=== PATIENT | male | born 1965 | race Caucasian/White ===

== ENCOUNTER 2016-04-28 08:29 | Inpatient (IN) | payer MEDICAID ==
--- NOTE | 2016-04-28 09:03 | CPEKG ---
Heart Rate: 164 RR Interval: 366 QRSD Interval: 98 QT Interval: 284 QTC Interval: 469 QRS Corral: 117 T Wave Corral: 8 EKG Severity - ABNORMAL ECG - EKG Impression: ATRIAL FIBRILLATION, V-RATE 114-197 EKG Impression: ANTERIOR INFARCT, AGE INDETERMINATE Electronically Signed By: Tristan Negron 28-Apr-2016 09:25:10
--- NOTE | 2016-04-28 09:11 | EDPHY ---
H & P Time Seen by Provider: 04/28/16 09:11 HPI/ROS: CHIEF COMPLAINT: Bilateral leg swelling HISTORY OF PRESENT ILLNESS: Patient was last admitted to the hospital in January 2012 with nonischemic cardiomyopathy and atrial fibrillation. He has been out of medications for about 8 months and was being seen by [facility] and was on carvedilol and amiodarone and Lasix. Over the last 2 weeks he describes bilateral leg swelling which is moderate to severe and not associated with shortness of breath or chest pain. Not better worse with anything. Associated with some skin discoloration but no pain and no trauma. REVIEW OF SYSTEMS: Eye: no change in vision ENT: no sore throat Cardiac: no chest pain or syncope Pulmonary: no cough or SOB Abdomen: no vomiting, diarrhea, abdominal pain Musculoskeletal: HPI Skin: no rash Neuro: no headache, no seizure, not tremulous or confused Constitutional: no fever : no urinary symptoms A comprehensive 10 point review of systems is otherwise negative aside from elements mentioned in the history of present illness. PAST MEDICAL HISTORY: Reviewed discharge summary dated 03/05/2012 includes nonischemic cardiomyopathy with ejection fraction of 30% at that time, sleep apnea, atrial fibrillation and flutter, type 2 diabetes, polysubstance abuse. Social history: Patient denies any cocaine or other substance abuse for the last 5 years. He does drink alcohol and his last drink was April 26 of this year. General Appearance: Alert and conversant, cooperative. Eyes: No scleral icterus. ENT, Mouth: Normal mucous membranes. Respiratory: Basilar rales, speaks full sentences, no focal lung sounds. Cardiovascular: Irregularly irregular and tachycardic. Gastrointestinal: Abdomen is soft and non tender. Obese. Neurological: Alert and oriented x3. Normally conversant. Face symmetric, normal movement and sensation in all extremities. Skin: Bilateral venous stasis changes both lower extremities but no redness warmth or lymphangitis. Musculoskeletal: 3+ bilateral pedal edema but no calf tenderness. Psychiatric: Not agitated. Emergency Department course/MDM: EKG, treatment for atrial fibrillation with rapid ventricular response with diltiazem 20 mg IV bolus followed by drip. He will be restarted on Eliquis, 5 mg given in the emergency department. Laboratory to include CBC chemistry liver function tests and ethanol level. 1011: Troponin 0.072, BNP greater than 2500, admission for atrial fibrillation with rapid ventricular response and congestive heart failure, and he has limited resources for outpatient follow-up. Heart rate 140 on diltiazem, blood pressure 128 systolic. Smoking Status: Current every day smoker Constitutional: Initial Vital Signs Temperature (C) 36.4 C 04/28/16 08:34 Heart Rate 144 H 04/28/16 08:34 Respiratory Rate 16 04/28/16 08:34 Blood Pressure 144/117 H 04/28/16 08:34 O2 Sat (%) 94 04/28/16 08:34 O2 Delivery Mode Nasal Cannula O2 (L/minute) 2 Allergies/Adverse Reactions: No Known Allergies Allergy (Verified 03/09/12 12:40) Home Medications: Medication Instructions Recorded NK [No Known Home Meds] 04/28/16 Medical Decision Making - Diagnostics EKG Interpretation: 12-lead EKG interpreted by me; official reading is in trace master. My interpretation is atrial fibrillation rate 164, late anterior RS transition probable old myocardial infarction Imaging: Chest x-ray personally interpreted shows cardiomegaly and congestive heart failure. Differential Diagnosis: Differential for leg swelling considered including but not limited to congestive heart failure, DVT, cellulitis, compartment syndrome. Consult/Admit Bed Type: [facility] for [facility] 1045, [facility] 1108 Critical Care Time: Critical care time spent by me, Dr. Negron, exclusively with the care of this patient was 35 minutes, exclusive of PA or HEALTH SUPPORT SPECIALIST time and exclusive of separate procedures. The organ system at risk was cardiovascular and I ordered oral anticoagulation, intravenous diltiazem bolus and drip, consultation with hospitalist and sample grinder, review of multiple diagnostic studies; to stabilize the patient and prevent worsening of the patient's condition. - Data Points Laboratory Results: Laboratory Results 04/28/16 09:02 04/28/16 09:02 04/28/16 04/28/16 04/28/16 09:02 09:02 09:02 WBC RBC Hgb Hct MCV MCH MCHC RDW Plt Count MPV Neut % (Auto) Lymph % (Auto) [place] % (Auto) Eos % (Auto) Baso % (Auto) Nucleat RBC Rel Count Absolute Neuts (auto) Absolute Lymphs (auto) Absolute Monos (auto) Absolute Eos (auto) Absolute Basos (auto) Absolute Nucleated RBC Immature Gran % Immature Gran # PT 16.0 SEC H SEC (12.0-15.0) INR 1.28 H (0.83-1.16) Sodium 141 mEq/L mEq/L (134-144) Potassium 4.4 mEq/L mEq/L (3.5-5.2) Chloride 101 mEq/L mEq/L (97-110) Carbon Dioxide 26 mEq/l mEq/l (22-31) Anion Gap 14 mEq/L mEq/L (8-16) BUN 14 mg/dL mg/dL (7-23) Creatinine 0.7 mg/dL mg/dL (0.7-1.3) Estimated GFR > 60 Glucose 165 mg/dL H mg/dL (70-100) Calcium 9.4 mg/dL mg/dL (8.5-10.4) Total Bilirubin 1.4 mg/dL mg/dL (0.1-1.4) Conjugated Bilirubin 0.6 mg/dL H mg/dL (0.0-0.5) Unconjugated Bilirubin 0.8 mg/dL mg/dL (0.0-1.1) AST 49 IU/L IU/L (17-59) ALT 47 IU/L IU/L (21-72) Alkaline Phosphatase 89 IU/L IU/L (38-126) Troponin I 0.072 ng/mL H ng/mL (0-0.034) NT-Pro-B Natriuret Pep 2510 pg/mL H pg/mL (0-125) Total Protein 7.5 g/dL g/dL (6.3-8.2) Albumin 4.2 g/dL g/dL (3.5-5.0) Ethyl Alcohol < 10 mg/dL mg/dL (0-10) 04/28/16 09:02 WBC 8.97 10^3/uL 10^3/uL (3.80-9.50) RBC 5.46 10^6/uL 10^6/uL (4.40-6.38) Hgb 18.0 g/dL H g/dL (13.7-17.5) Hct 55.1 % H % (40.0-51.0) MCV 100.9 fL H fL (81.5-99.8) MCH 33.0 pg pg (27.9-34.1) MCHC 32.7 g/dL g/dL (32.4-36.7) RDW 13.2 % % (11.5-15.2) Plt Count 210 10^3/uL 10^3/uL (150-400) MPV 11.6 fL fL (8.7-11.7) Neut % (Auto) 70.4 % % (39.3-74.2) Lymph % (Auto) 19.3 % % (15.0-45.0) [place] % (Auto) 7.9 % % (4.5-13.0) Eos % (Auto) 0.7 % % (0.6-7.6) Baso % (Auto) 0.6 % % (0.3-1.7) Nucleat RBC Rel Count 0.0 % % (0.0-0.2) Absolute Neuts (auto) 6.32 10^3/uL 10^3/uL (1.70-6.50) Absolute Lymphs (auto) 1.73 10^3/uL 10^3/uL (1.00-3.00) Absolute Monos (auto) 0.71 10^3/uL 10^3/uL (0.30-0.80) Absolute Eos (auto) 0.06 10^3/uL 10^3/uL (0.03-0.40) Absolute Basos (auto) 0.05 10^3/uL 10^3/uL (0.02-0.10) Absolute Nucleated RBC 0.00 10^3/uL 10^3/uL (0-0.01) Immature Gran % 1.1 % % (0.0-1.1) Immature Gran # 0.10 10^3/uL 10^3/uL (0.00-0.10) PT INR Sodium Potassium Chloride Carbon Dioxide Anion Gap BUN Creatinine Estimated GFR Glucose Calcium Total Bilirubin Conjugated Bilirubin Unconjugated Bilirubin AST ALT Alkaline Phosphatase Troponin I NT-Pro-B Natriuret Pep Total Protein Albumin Ethyl Alcohol Medications Given: Discontinued Medications Apixaban (Eliquis) 5 mg PO EDNOW ONE Stop: 04/28/16 09:45 Last Admin: 04/28/16 10:37 Dose: 5 mg Diltiazem HCl (Cardizem 25 Mg/5 Ml Vial) 20 mg IVP EDNOW ONE Stop: 04/28/16 09:21 Last Admin: 04/28/16 09:32 Dose: 20 mg Diltiazem HCl 125 mg/ Dextrose 125 mls @ 0 mls/hr IV EDNOW ONE; As Directed PRN Reason: Protocol Stop: 04/28/16 09:21 Last Admin: 04/28/16 09:49 Dose: 125 mls Departure - Departure Disposition: [facility] Clinical Impression: Atrial fibrillation Qualifiers: Atrial fibrillation type: unspecified Qualified Code(s): I48.91 - Unspecified atrial fibrillation Congestive heart failure Qualifiers: Congestive heart failure type: unspecified congestive heart failure type Congestive heart failure chronicity: acute on chronic Qualified Code(s): I50.9 - Heart failure, unspecified Condition: Good
[2016-04-28] MEDS ORDERED: DILTIAZEM 125 MG in D5W 125 ML IV ONE (09:20)
[2016-04-28] MEDS ORDERED: DILTIAZEM 25 MG/5 ML VIAL IVP ONE (09:20)
[2016-04-28 09:31] LABS: % IMMATURE GRANULYOCYTES 1.1 % (0.0-1.1); ADD DIFF? NO; ADD MORPH? NO; ADD SCAN? NO; ATYPICAL LYMPHOCYTE FLAG 30 (0-99); FRAGMENT RBC FLAG 0 (0-99); HEMATOCRIT 55.1 % (40.0-51.0); LEFT SHIFT FLG 10 (0-99); LIPEMIA HEMOLYSIS FLAG 80 (0-99); MEAN CELL HEMOGLOBIN CONCENTR. 32.7 g/dL (32.4-36.7); MEAN CELL VOLUME 100.9 fL (81.5-99.8); MEAN PLATELET VOLUME 11.6 fL (8.7-11.7); PLATELET CLUMPS FLAG 20 (0-99); PLATELET COUNT 210 10^3/uL (150-400); RED BLOOD CELL COUNT 5.46 10^6/uL (4.40-6.38); RED CELL DISTRIBUTION WIDTH 13.2 % (11.5-15.2)
[2016-04-28 09:32] LABS: INR 1.28 (0.83-1.16)
[2016-04-28 09:35] LABS: ALANINE AMINOTRANSFERASE 47 IU/L (21-72); ALBUMIN 4.2 g/dL (3.5-5.0); ALKALINE PHOSPHATASE 89 IU/L (38-126); ANION GAP 14 mEq/L (8-16); ASPARTATE AMINOTRANSFERASE 49 IU/L (17-59); BILIRUBIN,TOTAL 1.4 mg/dL (0.1-1.4); BILIRUBIN-CONJUGATED 0.6 mg/dL (0.0-0.5); BILIRUBIN-UNCONJUGATED 0.8 mg/dL (0.0-1.1); CALCIUM 9.4 mg/dL (8.5-10.4); CARBON DIOXIDE 26 mEq/l (22-31); CHLORIDE 101 mEq/L (97-110); CREATININE 0.7 mg/dL (0.7-1.3); GLOMERULAR FILTRATION RATE > 60; GLUCOSE 165 mg/dL (70-100); POTASSIUM 4.4 mEq/L (3.5-5.2); SODIUM 141 mEq/L (134-144); TOTAL PROTEIN 7.5 g/dL (6.3-8.2)
[2016-04-28] MEDS ORDERED: APIXABAN 5 MG TAB PO ONE (09:44)
[2016-04-28 10:07] LABS: TROPONIN I 0.072 ng/mL (0-0.034)
[2016-04-28 10:20] LABS: ETHANOL SERUM < 10 mg/dL (0-10)
[2016-04-28] MEDS ORDERED: ALBUTEROL 3 ML DEYVIAL IH PRN (13:35)
[2016-04-28] MEDS ORDERED: ACETAMINOPHEN 325 MG TAB PO PRN (13:35)
[2016-04-28] MEDS ORDERED: ONDANSETRON 4 MG/2 ML VIAL IVP PRN (13:35)
[2016-04-28] MEDS ORDERED: ONDANSETRON DISINTEGRATING 4 MG TAB PO PRN (13:35)
--- NOTE | 2016-04-28 13:55 | ECHO ---
[id number] + + [address] : : [place] [address] : : [phone] + + Adult Echocardiographic Report + + :Name: ERMELINDA MO Nichojoel Date: 04/28/2016 12:36 PM : : Hospital Admission Number: [id number] : :: 1965 Gender: Male Height: 74 in : :Age: 51 yrs Race: WH,White Weight: 377 lb : :Reason For Study: Eval LV Fx : : BSA: 2.8 meters2: :History: New onset of Atrial Fibrillation : + + MMode/2D Measurements \T\ Calculations IVSd: 1.2 cm LVIDd: 6.5 cm FS: 8.6 % Ao root diam: 3.5 cm LVPWd: 1.2 cm LVIDs: 5.9 cm EDV(Teich): 214.1 ml ACS: 2.0 cm ESV(Teich): 174.6 ml EF(Teich): 18.5 % Normal Measurement Values: + + :LVIDd (3.5-5.7cm) IVSd (0.6-1.1cm) LVPWd (0.6-1.1cm) Aortic Root (2.0-3.7cm)Left Atrium (1.5-4.0cm): :LV Vol(d) (76-115ml) LV Vol(s) (29-48ml) Ejec Fraction (50-65%)PV Maxi (0.6- 1.2m/s) TV Maxi (0.4-1.0m/s) : :MV E Maxi (0.8-1.0m/s)MV A Maxi (0.3-1.0m/s)LVOT Maxi (0.7-1.2m/s) Asc Ao Maxi ( 0.9-1.8m/s) : + + Doppler Measurements \T\ Calculations MV E max maxi: Ao V2 max: LV V1 max: TR max maxi: 104.0 cm/sec 118.0 cm/sec 58.7 cm/sec 273.0 cm/sec Ao max PG: LV V1 max PG: TR max P.6 mmHg 1.4 mmHg 29.8 mmHg RAP systole: 5.0 mmHg RVSP(TR): 34.8 mmHg Left Ventricle The left ventricle is mildly dilated. There is normal left ventricular wall thickness. Left ventricular systolic function is severely reduced. Ejection Fraction = 15%. There is severe global hypokinesis of the left ventricle. Right Ventricle The right ventricle is normal in size and function. Atria The Left Atrial Volume is 38 ml/m2. Right atrial size is normal. Mitral Valve The mitral valve is normal in structure and function. There is no mitral valve stenosis. There is no mitral regurgitation noted. Tricuspid Valve There is trace to mild tricuspid regurgitation. Right ventricular systolic pressure is normal. Aortic Valve The aortic valve is normal in structure and function. There is no aortic stenosis. There is no aortic insufficiency. Pulmonic Valve The pulmonic valve is normal in structure and function. There is no pulmonic valvular regurgitation. Great Vessels The aortic root is normal size. Pericardium/Pleural There is no pericardial effusion. Tachycardia. Conclusion A complete two-dimensional transthoracic echocardiogram was performed (2D, M-mode, Doppler and color flow Doppler). The left ventricle is mildly dilated. Left ventricular systolic function is severely reduced. Ejection Fraction = 15%. There is severe global hypokinesis of the left ventricle. The right ventricle is normal in size and function. The Left Atrial Volume is 38 ml/m2. Right atrial size is normal. The mitral valve is normal in structure and function. There is trace to mild tricuspid regurgitation. Right ventricular systolic pressure is normal. The aortic valve is normal in structure and function. There is no pericardial effusion. Tachycardia Final Reading Physician: Charla Lee signed on 04/28/2016 01:55 PM Ordering Physician: Lydia Pastrana Performed By: Ced De Jesus, KALACS
[2016-04-28] MEDS ORDERED: DILTIAZEM 125 MG in D5W 125 ML IV SCH (14:00)
--- NOTE | 2016-04-28 14:11 | GHP ---
DATE OF ADMISSION: 04/28/2016 CHIEF COMPLAINT: Leg swelling. HISTORY OF PRESENT ILLNESS: This is a 51-year-old male with a history of nonischemic cardiomyopathy . This was diagnosed in 2012. It was thought to be due to alcohol and substance abuse. He is lorna franklin followed by Dr. Schultz. He has been out of his medications for the last 8 months. He noticed o jacobo the last couple weeks increasing leg swelling, but denies any shortness of breath. He also cortez es any palpitations. He actually does have a little bit of shortness of breath, he says due to the swelling that is in his abdomen. He does drink alcohol regularly and his last drink was 3 days ago. He is using his CPAP. He denies any heart palpitations. He admits to dyspnea on exertion. REVIEW OF SYSTEMS: A 10-point review of systems was obtained and other than stated above is negativ e. PAST MEDICAL HISTORY: 1. Ischemic cardiomyopathy with EF of 30%. 2. Obstructive sleep apnea. 3. Previous history of type 2 diabetes, but is not on any medications currently. 4. History of atrial fibrillation. MEDICATIONS: None. SOCIAL HISTORY: He does smoke about 5 cigarettes per week. Regular alcohol use which he quit sever al days ago. Some occasional marijuana. FAMILY HISTORY: He is adopted. PHYSICAL EXAM: VITAL SIGNS: Afebrile, blood pressure is 116/87, heart rate initially was 140s, has come down to 117 on diltiazem drip. Oxygen saturation 95% on 2 L. GENERAL: The patient is well d eveloped, in no apparent distress. HEENT: Nonicteric sclerae. Extraocular movements intact. Mois t mucous membranes. NECK: Supple. No thyromegaly. LUNGS: Good effort. Decreased breath sounds with some slight expiratory wheezes. CARDIOVASCULAR: Distant heart sounds. ABDOMEN: Positive bow el sounds. Soft. Some subcutaneous edema, but also a little bit of shifting dullness to percussion . EXTREMITIES: 3+ edema. NEUROLOGIC: Alert and oriented x3. Moving all 4 extremities equally. PSYCH: Normal mood and affect. LABS: White count 8, hemoglobin 18, platelets 210. INR 1.28. Chemistries normal. Troponin slight ly elevated at 0.072. EKG personally reviewed and interpreted shows atrial fibrillation with rapid ventricular response. Anterior Q-waves. ASSESSMENT: This patient is a 51-year-old male with known cardiomyopathy presenting with congestive heart failure exacerbation due to medication noncompliance. PLAN: 1. Acute systolic congestive heart failure. The patient will be diuresed. Echocardiogram has alre kavya been done. Seems like he had been lost to followup with the electronics mechanic apprentice. They will see him in -house. 2. Atrial fibrillation with rapid ventricular response. We will continue diltiazem drip, but yina solorzano will start some type of oral medications. Defer this to Cardiology. Continue Eliquis. 3. Abdominal distention. Could be subcutaneous edema, though we will get an ultrasound to further evaluate ascites. 4. Mild positive troponins. This is probably related to strain. We will cycle these. 5. Obstructive sleep apnea. Continue CPAP. 6. Questionable type 2 diabetes. We will monitor blood sugar. 7. Admission. Patient will be admitted under inpatient status. Case is discussed with SHEYLA Carmichael records reviewed and summarized in the HPI. /[id number]/MODL
--- NOTE | 2016-04-28 14:57 | PDCARCONS ---
Cardiology Consult Reason for Consult: Heart failure Chief Complaint: short of breath and peripheral swelling Requesting Physician: Dr. Pastrana History of Present Illness: 51-year-old well known to me since 2011 with known history of a nonischemic cardiomyopathy. Initial ejection fraction was 20%. With aggressive medical therapy abstinence from alcohol and drugs his left ventricular function recovered. 5 months ago he stopped his medications due to financial distress. He began drinking heavily. He stopped 3 days ago with the onset of peripheral swelling. His abdominal girth increased he became increasingly shortness of breath with PND and orthopnea and came to the emergency department today for further evaluation. Echocardiogram done in the emergency department shows an ejection fraction 5% with severe global hypokinesis and dilatation of the left ventricle. On my arrival he complains of significant swelling to his abdomen. He does not have scrotal edema. He has significant PND and orthopnea as well as dyspnea on exertion. He stopped drinking 3 days ago. He has had no chest pain. He denies syncope near syncope or palpitations. He has been on no outpatient medications. He had extensive workup in 2011 including a normal coronary angiogram. Last echocardiogram done showed normalization of ejection fraction. I have not seen in the office in some time. He denies fever chills. He denies cough. He has no abdominal pain diarrhea or constipation. He denies tremulousness despite not drinking over 3 days. He denies drug use. Inpatient medications Medications Generic Name Dose Route Start Last Admin Trade Name Freq PRN Reason Stop Dose Admin Apixaban 5 mg 04/28/16 21:00 Eliquis PO 10/25/16 20:59 BID MAR Furosemide 40 mg 04/28/16 15:00 Lasix Injection IVP 10/25/16 14:59 BID@0900,1500 MAR Amiodarone HCl 200 mls @ 0 mls/hr 02/20/12 08:00 Nexterone 1.8 Mg/Ml (Premix) IV 08/18/12 07:59 CONT MAR Per Protocol Furosemide 40 mg 02/19/12 12:00 [id number] Lasix Injection IVP 08/17/12 11:59 [id number] Q6 MAR . 02/20/12 06:48 40 MG [id number] Spironolactone 25 mg 02/20/12 10:30 Aldactone PO 08/18/12 10:29 DAILY MAR History Information - Allergies/Home Medication List Allergies/Adverse Reactions: No Known Allergies Allergy (Verified 03/09/12 12:40) Home Medications: NK [No Known Home Meds] 04/28/16 [Last Taken Unknown] I have personally reviewed and updated: family history, medical history, social history, surgical history - Past Medical History atrial fibrillation - Surgical History Reports: no pertinent surgical hx - Family History Positive for: non-pertinent - Social History Smoking Status: Current every day smoker Alcohol Use: Heavy Drug Use: Cocaine Physical Exam Temp Pulse Resp BP Pulse Ox 36.7 C 117 H 20 116/87 H 95 04/28/16 12:13 04/28/16 12:13 04/28/16 12:13 04/28/16 12:13 04/28/16 12:13 O2 (L/minute) 2 Constitutional: obese, uncomfortable, unkempt Eyes: anicteric sclera Ears, Nose, Mouth, Throat: moist mucous membranes Cardiovascular: irregularly irregular, JVD, edema ( bilateral to the mid abdomen ) Peripheral Pulses: 1+: dorsalis-pedis (R), dorsalis-pedis (L), 2+: carotid (R), carotid (L) Respiratory: other ( Bilateral rales) Gastrointestinal: normoactive bowel sounds Skin: erythema, induration Neurologic: AAOx3 Psychiatric: interacting appropriately Lymph, Heme, Immunologic: no cervical LAD, no supraclavicular LAD Lab and Imaging 04/28/16 09:02 04/28/16 09:02 WBC 8.97 10^3/uL (3.80-9.50) 04/28/16 09:02 RBC 5.46 10^6/uL (4.40-6.38) 04/28/16 09:02 Hgb 18.0 g/dL (13.7-17.5) H 04/28/16 09:02 Hct 55.1 % (40.0-51.0) H 04/28/16 09:02 MCV 100.9 fL (81.5-99.8) H 04/28/16 09:02 MCH 33.0 pg (27.9-34.1) 04/28/16 09:02 MCHC 32.7 g/dL (32.4-36.7) 04/28/16 09:02 RDW 13.2 % (11.5-15.2) 04/28/16 09:02 Plt Count 210 10^3/uL (150-400) 04/28/16 09:02 MPV 11.6 fL (8.7-11.7) 04/28/16 09:02 Neut % (Auto) 70.4 % (39.3-74.2) 04/28/16 09:02 Lymph % (Auto) 19.3 % (15.0-45.0) 04/28/16 09:02 [place] % (Auto) 7.9 % (4.5-13.0) 04/28/16 09:02 Eos % (Auto) 0.7 % (0.6-7.6) 04/28/16 09:02 Baso % (Auto) 0.6 % (0.3-1.7) 04/28/16 09:02 Nucleat RBC Rel Count 0.0 % (0.0-0.2) 04/28/16 09:02 Absolute Neuts (auto) 6.32 10^3/uL (1.70-6.50) 04/28/16 09:02 Absolute Lymphs (auto) 1.73 10^3/uL (1.00-3.00) 04/28/16 09:02 Absolute Monos (auto) 0.71 10^3/uL (0.30-0.80) 04/28/16 09:02 Absolute Eos (auto) 0.06 10^3/uL (0.03-0.40) 04/28/16 09:02 Absolute Basos (auto) 0.05 10^3/uL (0.02-0.10) 04/28/16 09:02 Absolute Nucleated RBC 0.00 10^3/uL (0-0.01) 04/28/16 09:02 Immature Gran % 1.1 % (0.0-1.1) 04/28/16 09:02 Immature Gran # 0.10 10^3/uL (0.00-0.10) 04/28/16 09:02 PT 16.0 SEC (12.0-15.0) H 04/28/16 09:02 INR 1.28 (0.83-1.16) H 04/28/16 09:02 Sodium 141 mEq/L (134-144) 04/28/16 09:02 Potassium 4.4 mEq/L (3.5-5.2) 04/28/16 09:02 Chloride 101 mEq/L (97-110) 04/28/16 09:02 Carbon Dioxide 26 mEq/l (22-31) 04/28/16 09:02 Anion Gap 14 mEq/L (8-16) 04/28/16 09:02 BUN 14 mg/dL (7-23) 04/28/16 09:02 Creatinine 0.7 mg/dL (0.7-1.3) 04/28/16 09:02 Estimated GFR > 60 04/28/16 09:02 Glucose 165 mg/dL (70-100) H 04/28/16 09:02 Calcium 9.4 mg/dL (8.5-10.4) 04/28/16 09:02 Total Bilirubin 1.4 mg/dL (0.1-1.4) 04/28/16 09:02 Conjugated Bilirubin 0.6 mg/dL (0.0-0.5) H 04/28/16 09:02 Unconjugated Bilirubin 0.8 mg/dL (0.0-1.1) 04/28/16 09:02 AST 49 IU/L (17-59) 04/28/16 09:02 ALT 47 IU/L (21-72) 04/28/16 09:02 Alkaline Phosphatase 89 IU/L (38-126) 04/28/16 09:02 Troponin I 0.072 ng/mL (0-0.034) H 04/28/16 09:02 NT-Pro-B Natriuret Pep 2510 pg/mL (0-125) H 04/28/16 09:02 Total Protein 7.5 g/dL (6.3-8.2) 04/28/16 09:02 Albumin 4.2 g/dL (3.5-5.0) 04/28/16 09:02 Ethyl Alcohol < 10 mg/dL (0-10) 04/28/16 09:02 Chest X-ray Interpretation: other ( cardiomegaly with bilateral pleural effusions) Visualized and Interpreted EKG results: Yes Echocardiogram: severe LV dysfunction with dilatation of the ventricle. Ejection fraction of 5 -10%. A/P Assessment: Impression: 51 year old male with nonischemic dilated cardiomyopathy recurrent after 5 months off medications and with recent alcohol binge. This is complicated by recurrent atrial fibrillation. Recommendations are for aggressive diuresis. Re-initiation of Coreg, Aldactone , BRADLY-inhibitor. Load with amiodarone and anticoagulation with cardioversion in the near future. Abstinence from alcohol. We will follow along with you. No further testing required. Plan: Initiate aggressive medical therapy for class 3-4 heart failure. Begin anticoagulation with severe LV dysfunction and atrial fibrillation. Begin amiodarone for rate and rhythm control. Abstinence from alcohol with careful attention for withdrawal. Review of Systems - Review of Systems Constitutional: denies: chills, fever EENTM: no symptoms reported Respiratory: shortness of breath. denies: cough, wheezing Cardiac: edema, irregular heart rate. denies: chest pain, lightheadedness, palpitations, syncope Gastrointestinal/Abdominal: no symptoms reported Genitourinary: no symptoms Musculoskelatal: no symptoms Skin: no symptoms Hematologic/Lymphatic: no symptoms reported Past Medical History - Personal History Current Tetanus/Diphtheria Vaccine: Unsure Current Tetanus Diphtheria and Acellular Pertussis (TDAP): Unsure Tetanus Vaccine Date: unsure - Medical/Surgical History Hx Asthma: No Hx Chronic Respiratory Disease: No Hx Cardiac Disease: Yes Hx Diabetes: No Hx Renal Disease: No Hx Alcoholism: Yes Hx Cirrhosis: No Hx HIV/AIDS: No Hx Splenectomy or Spleen Trauma: No Other PMH: CHF, ZHENG, aFIB. htn. etoh abuse--stopped etoh 04/26/16--feels way better - Social History Smoking Status: Current every day smoker
[2016-04-28] MEDS ORDERED: FUROSEMIDE 40 MG/4 ML VIAL IVP SCH (15:00)
[2016-04-28] MEDS: AMIODARONE HCL 200 MG TAB PO SCH ×2 (16:18→21:08)
[2016-04-28] MEDS ORDERED: FUROSEMIDE 40 MG/4 ML VIAL IVP ONE (16:30)
[2016-04-28] MEDS: FUROSEMIDE 40 MG/4 ML VIAL IVP SCH ×2 (18:48→23:35)
[2016-04-28] MEDS: CARVEDILOL 3.125 MG TAB PO SCH (18:48)
[2016-04-28] MEDS: APIXABAN 5 MG TAB PO SCH (21:08)
[2016-04-29 04:35] LABS: % IMMATURE GRANULYOCYTES 0.6 % (0.0-1.1); ABSOLUTE IMMATURE GRANULOCYTES 0.06 10^3/uL (0.00-0.10); ADD DIFF? NO; ADD MORPH? NO; ADD SCAN? NO; ATYPICAL LYMPHOCYTE FLAG 10 (0-99); FRAGMENT RBC FLAG 0 (0-99); HEMATOCRIT 48.8 % (40.0-51.0); LEFT SHIFT FLG 0 (0-99); LIPEMIA HEMOLYSIS FLAG 80 (0-99); MEAN CELL HEMOGLOBIN 32.6 pg (27.9-34.1); MEAN CELL HEMOGLOBIN CONCENTR. 32.8 g/dL (32.4-36.7); MEAN CELL VOLUME 99.4 fL (81.5-99.8); MEAN PLATELET VOLUME 11.7 fL (8.7-11.7); PLATELET CLUMPS FLAG 0 (0-99); PLATELET COUNT 189 10^3/uL (150-400); RED BLOOD CELL COUNT 4.91 10^6/uL (4.40-6.38); RED CELL DISTRIBUTION WIDTH 13.1 % (11.5-15.2)
[2016-04-29 04:59] LABS: ALANINE AMINOTRANSFERASE 42 IU/L (21-72); ALBUMIN 3.7 g/dL (3.5-5.0); ALKALINE PHOSPHATASE 66 IU/L (38-126); ANION GAP 13 mEq/L (8-16); ASPARTATE AMINOTRANSFERASE 36 IU/L (17-59); BILIRUBIN,TOTAL 1.4 mg/dL (0.1-1.4); CALCIUM 8.8 mg/dL (8.5-10.4); CARBON DIOXIDE 27 mEq/l (22-31); CHLORIDE 99 mEq/L (97-110); CREATININE 0.8 mg/dL (0.7-1.3); GLOMERULAR FILTRATION RATE > 60; GLUCOSE 143 mg/dL (70-100); POTASSIUM 3.8 mEq/L (3.5-5.2); SODIUM 139 mEq/L (134-144); TOTAL PROTEIN 6.6 g/dL (6.3-8.2)
[2016-04-29 05:11] LABS: TROPONIN I 0.056 ng/mL (0-0.034)
[2016-04-29] MEDS: FUROSEMIDE 40 MG/4 ML VIAL IVP SCH ×4 (06:16→23:10)
--- NOTE | 2016-04-29 09:37 | SOAPPROG ---
SOAP Progress Note Assessment/Plan: Assessment: 1. Nonischemic dilated cardiomyopathy ejection fraction 5-10%. 2. persistent atrial fibrillation. 3. alcoholism. Impression: Significant improvement overnight with diuresis. Less abdominal fullness and less peripheral edema. Still clearly volume overloaded. He has blood pressure to work with and clearly needs enhanced rate control. Will up titrate beta-sharda. Formal heart failure consultation will be obtained tomorrow from Dr. Jacobs. He will need chronic anticoagulation. Will plan for cardioversion once he is completely loaded with amiodarone probably 2-3 weeks. Discussed importance of alcohol rehabilitation. He is willing to consider a inpatient program at the time of discharge. I am not sure what options are available. Will ask for consultation from social work. Up titrate Coreg. Consultation for inpatient alcohol rehabilitation. Continue amiodarone for rate and rhythm control with three times daily dosing for 1 week then twice daily dosing then daily dosing. Continue IV diuresis. Add Aldactone tomorrow. 04/29/16 09:33 Subjective: Feeling better with less peripheral edema. Slept well with CPAP mask. no chest pain. Continued exertional shortness of breath. No syncope or near syncope. Discussed the importance today of rehabilitation from his alcoholism. Discussed potential inpatient rehabilitation. He is concerned about the cost. Objective: Vital Signs Temp Pulse Resp BP Pulse Ox 36.4 C 113 H 18 138/99 H 98 04/29/16 08:00 04/29/16 08:00 04/29/16 08:00 04/29/16 08:00 04/29/16 08:00 Laboratory Results 04/29/16 03:46 04/29/16 03:46 04/28/16 04/29/16 04/30/16 05:59 05:59 05:59 Intake Total 1300 Output Total 550 Balance 750 PT 16.0 SEC (12.0-15.0) H 04/28/16 09:02 INR 1.28 (0.83-1.16) H 04/28/16 09:02 Physical Exam - Physical Exam General Appearance: mild distress Neck: non-tender Respiratory: chest non-tender, rales Cardiac/Chest: irregularly irregular Abdomen: normal bowel sounds, ascites Back: No CVA tenderness Skin: other ( Anasarca) Extremities: pedal edema, No calf tenderness Neuro/Psych: no motor/sensory deficits, normal mood/affect ICD10 Worksheet Patient Problems: Problems Problem Status Onset Atrial fibrillation Acute Congestive heart failure Acute Review of Systems - Review of Systems Constitutional: malaise. denies: chills, fever Respiratory: shortness of breath Cardiac: edema, irregular heart rate. denies: chest pain, lightheadedness, palpitations, syncope Gastrointestinal/Abdominal: abdominal distention Genitourinary: frequency Musculoskelatal: no symptoms
[2016-04-29] MEDS: LISINOPRIL 2.5 MG TAB PO SCH (10:32)
[2016-04-29] MEDS: AMIODARONE HCL 200 MG TAB PO SCH ×3 (10:32→22:00)
[2016-04-29] MEDS: APIXABAN 5 MG TAB PO SCH ×2 (10:32→22:00)
[2016-04-29] MEDS: DIGOXIN 250 MCG TAB PO SCH (10:32)
[2016-04-29] MEDS: CARVEDILOL 3.125 MG TAB PO SCH (10:32)
--- NOTE | 2016-04-29 17:40 | HOSPPROG ---
Hospitalist Progress Note Assessment/Plan: * Acute systolic CHF exacerbation * cont iv diuresis per cardiology * non-ischemic cardiomyopathy * d/t alcohol * afib * amiodorone * eliquis * cardioversion in few weeks * alcohol abuse * encouraging abstinence *ZHENG Subjective: feels better. less abd swelling, breathing better Objective: Vital Signs Temp Pulse Resp BP Pulse Ox 36.7 C 80 18 127/103 H 92 04/29/16 15:47 04/29/16 15:47 04/29/16 15:47 04/29/16 15:47 04/29/16 15:47 Laboratory Results 04/29/16 03:46 04/29/16 03:46 04/28/16 04/29/16 04/30/16 05:59 05:59 05:59 Intake Total 1300 Output Total 550 Balance 750 PT 16.0 SEC (12.0-15.0) H 04/28/16 09:02 INR 1.28 (0.83-1.16) H 04/28/16 09:02 tele pers rev/int - afib with rvr, discussed with cardiology ICD10 Worksheet Patient Problems: Problems Problem Status Onset Atrial fibrillation Acute Congestive heart failure Acute
[2016-04-29] MEDS: CARVEDILOL 6.25 MG TAB PO SCH (18:03)
[2016-04-30] MEDS: FUROSEMIDE 40 MG/4 ML VIAL IVP SCH ×4 (05:30→23:07)
--- NOTE | 2016-04-30 08:26 | SOAPPROG ---
SOAP Progress Note Assessment/Plan: Assessment: 51 y/o man with chronic morbid obesity with "dry weight" at 330lbs and CHF since 2011 with ETOH use. Had normalized his LVEF off ETOH but then relapse and now admitted two days ago with 45lbs weight gain and decompensated CHF and afib. Echo now LVEF 15% with LVEDD 6.5cm, normal RVEF, and mild TR. He is diuresis and feeling less short of breath. Denies CP, palpitations or angina. Still markedly volume overloaded especially with distended abdomen. PLAN: 1)increase Lasix to 60mg IV q6hrs. 2)increase Aldactone to 25mg PO BID 3)start KCL 20meq PO TID 4)daily CBC, BMP and MG. 5)suspect needs another 4-7 days of IV diuresis 6)will set up f/u in [facility] upon discharge along with TAYA/CV back to [facility] in 2-3 weeks. Thanks. 04/30/16 08:21 Subjective: feels better and less short of breath. Denies CP, palpitations or dizziness. Urinating a lot and abdomen feels less distended. Still > 30lbs above dry weight. Ambulating in his room without problems. Objective: Vital Signs Temp Pulse Resp BP Pulse Ox 36.6 C 104 H 20 91/77 L 94 04/30/16 07:41 04/30/16 07:41 04/30/16 07:41 04/30/16 07:41 04/30/16 07:41 Laboratory Results 04/29/16 03:46 04/29/16 03:46 04/29/16 04/30/16 05/01/16 05:59 05:59 05:59 Intake Total 1300 700 Output Total 550 7513 750 Balance 750 -8514 -750 PT 16.0 SEC (12.0-15.0) H 04/28/16 09:02 INR 1.28 (0.83-1.16) H 04/28/16 09:02 Physical Exam - Physical Exam General Appearance: obese EENT: normal ENT inspection Neck: non-tender Respiratory: lungs clear Cardiac/Chest: systolic murmur (1/6 BRIJESH), irregularly irregular Peripheral Pulses: 1+: femoral (R), femoral (L), dorsalis-pedis (R), dorsalis- pedis (L), 2+: carotid (R), carotid (L) Abdomen: normal bowel sounds, non-tender, organomegaly, distended Skin: warm/dry Extremities: pedal edema Neuro/Psych: alert ICD10 Worksheet Patient Problems: Problems Problem Status Onset Atrial fibrillation Acute Congestive heart failure Acute
[2016-04-30] MEDS ORDERED: SPIRONOLACTONE 25 MG TAB PO SCH (09:00)
[2016-04-30] MEDS: AMIODARONE HCL 200 MG TAB PO SCH ×3 (09:39→20:38)
[2016-04-30] MEDS: APIXABAN 5 MG TAB PO SCH ×2 (09:39→20:37)
[2016-04-30] MEDS: DIGOXIN 250 MCG TAB PO SCH (09:39)
[2016-04-30] MEDS: CARVEDILOL 6.25 MG TAB PO SCH ×2 (09:40→17:57)
[2016-04-30] MEDS: SPIRONOLACTONE 25 MG TAB PO SCH ×2 (09:40→20:38)
[2016-04-30] MEDS: POTASSIUM CL 20 MEQ PKT PO SCH ×3 (09:40→20:37)
[2016-04-30] MEDS: LISINOPRIL 2.5 MG TAB PO SCH (09:40)
[2016-04-30 09:44] LABS: HEMATOCRIT 49.2 % (40.0-51.0); HEMOGLOBIN 16.2 g/dL (13.7-17.5); MEAN CELL HEMOGLOBIN 32.3 pg (27.9-34.1); MEAN CELL HEMOGLOBIN CONCENTR. 32.9 g/dL (32.4-36.7); MEAN CELL VOLUME 98.2 fL (81.5-99.8); RED BLOOD CELL COUNT 5.01 10^6/uL (4.40-6.38)
[2016-04-30 09:59] LABS: ANION GAP 10 mEq/L (8-16); CALCIUM 8.5 mg/dL (8.5-10.4); CARBON DIOXIDE 31 mEq/l (22-31); CHLORIDE 97 mEq/L (97-110); CREATININE 0.7 mg/dL (0.7-1.3); GLOMERULAR FILTRATION RATE > 60; GLUCOSE 135 mg/dL (70-100); MAGNESIUM 1.5 mg/dL (1.6-2.3); POTASSIUM 3.8 mEq/L (3.5-5.2); SODIUM 138 mEq/L (134-144)
[2016-04-30] MEDS ORDERED: MAGNESIUM SULF 2 GM/WATER 50 ML IV ONE (10:39)
--- NOTE | 2016-04-30 12:00 | HOSPPROG ---
Hospitalist Progress Note Assessment/Plan: * Acute systolic CHF exacerbation * cont iv diuresis per cardiology * non-ischemic cardiomyopathy * d/t alcohol * afib * amiodorone * eliquis * cardioversion in few weeks * alcohol abuse * encouraging abstinence *ZHENG Subjective: no new complaints. Continues to diurese Objective: Vital Signs Temp Pulse Resp BP Pulse Ox 36.5 C 102 H 16 98/76 L 89 L 04/30/16 11:15 04/30/16 11:15 04/30/16 11:15 04/30/16 11:15 04/30/16 11:15 Laboratory Results 04/30/16 09:25 04/30/16 09:25 04/29/16 04/30/16 05/01/16 05:59 05:59 05:59 Intake Total 1300 700 Output Total 550 3325 1000 Balance 750 -2625 -1000 PT 16.0 SEC (12.0-15.0) H 04/28/16 09:02 INR 1.28 (0.83-1.16) H 04/28/16 09:02 discussed with Cardiology. Tele personally viewed interpreted atrial fibrillation - Physical Exam Constitutional: no apparent distress, appears nourished, not in pain Eyes: anicteric sclera, EOMI Ears, Nose, Mouth, Throat: moist mucous membranes, hearing normal, ears appear normal Cardiovascular: irregularly irregular, edema ( 2+) Respiratory: no respiratory distress, no rales or rhonchi, clear to auscultation Gastrointestinal: normoactive bowel sounds, soft, non-tender abdomen, no palpable masses, distension Skin: warm Neurologic: AAOx3 Psychiatric: interacting appropriately, not anxious, not encephalopathic, thought process linear ICD10 Worksheet Patient Problems: Problems Problem Status Onset Atrial fibrillation Acute Congestive heart failure Acute
[2016-05-01 05:37] LABS: HEMATOCRIT 48.2 % (40.0-51.0); HEMOGLOBIN 15.5 g/dL (13.7-17.5); MEAN CELL HEMOGLOBIN 32.2 pg (27.9-34.1); MEAN CELL HEMOGLOBIN CONCENTR. 32.2 g/dL (32.4-36.7); RED BLOOD CELL COUNT 4.82 10^6/uL (4.40-6.38); RED CELL DISTRIBUTION WIDTH 12.8 % (11.5-15.2)
[2016-05-01 05:53] LABS: CHLORIDE 95 mEq/L (97-110)
[2016-05-01 05:56] LABS: ANION GAP 10 mEq/L (8-16); CALCIUM 8.7 mg/dL (8.5-10.4); CARBON DIOXIDE 31 mEq/l (22-31); CREATININE 0.8 mg/dL (0.7-1.3); GLOMERULAR FILTRATION RATE > 60; GLUCOSE 116 mg/dL (70-100); MAGNESIUM 1.6 mg/dL (1.6-2.3); POTASSIUM 3.8 mEq/L (3.5-5.2); SODIUM 136 mEq/L (134-144)
[2016-05-01] MEDS: FUROSEMIDE 40 MG/4 ML VIAL IVP SCH (05:59)
[2016-05-01] MEDS ORDERED: MAGNESIUM SULF 2 GM/WATER 50 ML IV ONE ×2 (09:26→15:00)
--- NOTE | 2016-05-01 09:29 | SOAPPROG ---
SOAP Progress Note Assessment/Plan: Assessment: 51 y/o man with chronic morbid obesity with "dry weight" at 330lbs and CHF since 2011 with ETOH use. Had normalized his LVEF off ETOH but then relapse and now admitted two days ago with 45lbs weight gain and decompensated CHF and afib. Echo now LVEF 15% with LVEDD 6.5cm, normal RVEF, and mild TR. He is diuresis and feeling less short of breath. Denies CP, palpitations or angina. Still markedly volume overloaded especially with distended abdomen. He has diuresed only about 8-10lbs in first three days and is up 40lbs by his scales. PLAN: 1)stop IV lasix q6hrs. 2)start Lasix gtt at 30mg/hr. 3)start Slow Mg 64mg PO BID 4)rest of meds without changes. 5)PT consult to ambulate. Really doesn't get out of be. 6)daily AM serum electrolytes. 05/01/16 09:26 Subjective: feels a little less distended. Denies muscle cramping, CP or syncope. Still short of breath at rest. Objective: Vital Signs Temp Pulse Resp BP Pulse Ox 36.8 C 92 20 112/87 H 95 05/01/16 07:57 05/01/16 07:57 05/01/16 07:57 05/01/16 07:57 05/01/16 07:57 Laboratory Results 05/01/16 04:38 05/01/16 04:38 04/30/16 05/01/16 05/02/16 05:59 05:59 05:59 Intake Total 700 1410 Output Total 3325 3180 Balance -2625 -1770 PT 16.0 SEC (12.0-15.0) H 04/28/16 09:02 INR 1.28 (0.83-1.16) H 04/28/16 09:02 Physical Exam - Physical Exam General Appearance: alert, obese EENT: PERRL/EOMI Neck: non-tender Respiratory: rales (bases bilaterally.) Cardiac/Chest: gallop, JVD, systolic murmur, irregularly irregular Peripheral Pulses: 2+: carotid (R), carotid (L), femoral (R), femoral (L), dorsalis-pedis (R), dorsalis-pedis (L) Abdomen: non-tender, distended, No guarding Skin: warm/dry Extremities: pedal edema Neuro/Psych: alert ICD10 Worksheet Patient Problems: Problems Problem Status Onset Atrial fibrillation Acute Congestive heart failure Acute
[2016-05-01] MEDS: CARVEDILOL 6.25 MG TAB PO SCH ×2 (09:39→18:53)
[2016-05-01] MEDS: AMIODARONE HCL 200 MG TAB PO SCH ×3 (09:39→20:24)
[2016-05-01] MEDS: SPIRONOLACTONE 25 MG TAB PO SCH ×2 (09:39→20:24)
[2016-05-01] MEDS: APIXABAN 5 MG TAB PO SCH ×2 (09:39→20:23)
[2016-05-01] MEDS: LISINOPRIL 2.5 MG TAB PO SCH (09:39)
[2016-05-01] MEDS: DIGOXIN 250 MCG TAB PO SCH (09:40)
[2016-05-01] MEDS: POTASSIUM CL 20 MEQ PKT PO SCH ×3 (09:41→20:24)
[2016-05-01] MEDS: MAGNESIUM CHLORIDE 64 MG TAB PO SCH ×2 (11:14→20:23)
[2016-05-01] MEDS: FUROSEMIDE 100 MG in D5W 100 ML IV SCH ×3 (11:16→20:15)
--- NOTE | 2016-05-01 14:57 | HOSPPROG ---
Hospitalist Progress Note Assessment/Plan: * Acute systolic CHF exacerbation * switch to Lasix drip per Cardiology * non-ischemic cardiomyopathy * d/t alcohol * afib * amiodorone * eliquis * cardioversion in few weeks * alcohol abuse * encouraging abstinence *ZHENG Subjective: edema seems to be improving. No new complaints Objective: Vital Signs Temp Pulse Resp BP Pulse Ox 36.4 C 91 20 98/79 L 90 L 05/01/16 11:44 05/01/16 11:44 05/01/16 11:44 05/01/16 11:44 05/01/16 11:44 Laboratory Results 05/01/16 04:38 05/01/16 04:38 04/30/16 05/01/16 05/02/16 05:59 05:59 05:59 Intake Total 700 1410 690 Output Total 3325 3180 1590 Balance -2625 -1770 -900 PT 16.0 SEC (12.0-15.0) H 04/28/16 09:02 INR 1.28 (0.83-1.16) H 04/28/16 09:02 discussed with cardiology tele reviewed interpreted as AFib - Physical Exam Constitutional: no apparent distress, appears nourished, not in pain Eyes: anicteric sclera, EOMI Ears, Nose, Mouth, Throat: moist mucous membranes, hearing normal, ears appear normal Cardiovascular: irregularly irregular, edema ( 2+) Respiratory: no respiratory distress, no rales or rhonchi, clear to auscultation Gastrointestinal: normoactive bowel sounds, soft, non-tender abdomen, no palpable masses Skin: warm Neurologic: AAOx3 Psychiatric: interacting appropriately, not anxious, not encephalopathic, thought process linear ICD10 Worksheet Patient Problems: Problems Problem Status Onset Atrial fibrillation Acute Congestive heart failure Acute
[2016-05-02] MEDS: FUROSEMIDE 100 MG in D5W 100 ML IV SCH ×7 (00:08→19:47)
[2016-05-02 05:20] LABS: HEMATOCRIT 52.2 % (40.0-51.0); HEMOGLOBIN 16.7 g/dL (13.7-17.5); MEAN CELL HEMOGLOBIN 31.5 pg (27.9-34.1); MEAN CELL VOLUME 98.5 fL (81.5-99.8); RED BLOOD CELL COUNT 5.3 10^6/uL (4.40-6.38); RED CELL DISTRIBUTION WIDTH 12.8 % (11.5-15.2)
[2016-05-02 05:40] LABS: ANION GAP 12 mEq/L (8-16); CALCIUM 8.8 mg/dL (8.5-10.4); CARBON DIOXIDE 36 mEq/l (22-31); CHLORIDE 91 mEq/L (97-110); CREATININE 0.8 mg/dL (0.7-1.3); GLOMERULAR FILTRATION RATE > 60; GLUCOSE 124 mg/dL (70-100); MAGNESIUM 1.9 mg/dL (1.6-2.3); POTASSIUM 4.1 mEq/L (3.5-5.2); SODIUM 139 mEq/L (134-144)
[2016-05-02] MEDS: APIXABAN 5 MG TAB PO SCH ×2 (09:13→21:06)
[2016-05-02] MEDS: AMIODARONE HCL 200 MG TAB PO SCH ×3 (09:13→21:02)
[2016-05-02] MEDS: CARVEDILOL 6.25 MG TAB PO SCH ×2 (09:13→18:40)
--- NOTE | 2016-05-02 09:18 | SOAPPROG ---
SOAP Progress Note Assessment/Plan: Assessment: 51 y/o man with chronic morbid obesity with "dry weight" at 330lbs and CHF since 2011 with ETOH use. Had normalized his LVEF off ETOH but then relapse and now admitted two days ago with 45lbs weight gain and decompensated CHF and afib. Echo now LVEF 15% with LVEDD 6.5cm, normal RVEF, and mild TR. He is diuresis and feeling less short of breath. Denies CP, palpitations or angina. Diuresing very well now on Lasix gtt. Still about 20lbs from dry weight. He has a concert in [place] he really needs to go to to stay financially solvent this Monday. He promises to no longer use ETOH or cocaine. PLAN: 1)decrease Lasix gtt to 20mg/hr. 2)Diamox 500mg PO BID 3)probably change to PO Demadex Tommorrow afternoon and home Mon. 4)close f/u CHF clinic with me next week. 05/02/16 09:15 Subjective: up all night urinating. Exhausted. Some muscle cramping. Abdominal swelling and shortness of breath much better. No CP or syncope. Objective: Vital Signs Temp Pulse Resp BP Pulse Ox 36.4 C 96 18 115/95 H 96 05/02/16 08:00 05/02/16 08:00 05/02/16 08:00 05/02/16 08:00 05/02/16 08:00 Laboratory Results 05/02/16 04:57 05/02/16 04:57 05/01/16 05/02/16 05/03/16 05:59 05:59 05:59 Intake Total 1410 1644 320 Output Total 318 801 3100 Balance -6528 -6083 -9750 PT 16.0 SEC (12.0-15.0) H 04/28/16 09:02 INR 1.28 (0.83-1.16) H 04/28/16 09:02 Physical Exam - Physical Exam General Appearance: alert, obese EENT: PERRL/EOMI Neck: full range of motion Respiratory: lungs clear Cardiac/Chest: edema, gallop, JVD, irregularly irregular Peripheral Pulses: 2+: carotid (R), carotid (L), femoral (R), femoral (L), dorsalis-pedis (R), dorsalis-pedis (L) Abdomen: non-tender, organomegaly, distended, No guarding Skin: warm/dry Extremities: pedal edema Neuro/Psych: alert ICD10 Worksheet Patient Problems: Problems Problem Status Onset Atrial fibrillation Acute Congestive heart failure Acute
[2016-05-02] MEDS: POTASSIUM CL 20 MEQ PKT PO SCH ×3 (10:25→21:02)
[2016-05-02] MEDS: MAGNESIUM CHLORIDE 64 MG TAB PO SCH ×2 (10:25→21:02)
[2016-05-02] MEDS: SPIRONOLACTONE 25 MG TAB PO SCH ×2 (10:26→21:02)
[2016-05-02] MEDS: LISINOPRIL 2.5 MG TAB PO SCH (10:26)
[2016-05-02] MEDS: DIGOXIN 250 MCG TAB PO SCH (10:26)
[2016-05-02] MEDS: acetaZOLAMIDE 250 MG TAB PO SCH ×2 (10:37→21:02)
[2016-05-02 16:31] LABS: ANION GAP 14 mEq/L (8-16); CALCIUM 9.3 mg/dL (8.5-10.4); CARBON DIOXIDE 34 mEq/l (22-31); CHLORIDE 89 mEq/L (97-110); CREATININE 0.9 mg/dL (0.7-1.3); GLOMERULAR FILTRATION RATE > 60; GLUCOSE 116 mg/dL (70-100); POTASSIUM 3.5 mEq/L (3.5-5.2); SODIUM 137 mEq/L (134-144)
--- NOTE | 2016-05-02 16:58 | HOSPPROG ---
Hospitalist Progress Note Assessment/Plan: * Acute systolic CHF exacerbation * continue Lasix drip per Cardiology * possible DC on Monday * non-ischemic cardiomyopathy * d/t alcohol * afib * amiodorone * eliquis * cardioversion in few weeks * alcohol abuse * encouraging abstinence *ZHENG Subjective: diuresed pretty well. No complaints Objective: Vital Signs Temp Pulse Resp BP Pulse Ox 36.8 C 98 21 H 117/77 95 05/02/16 12:00 05/02/16 12:00 05/02/16 12:00 05/02/16 12:00 05/02/16 12:00 Laboratory Results 05/02/16 04:57 05/02/16 15:16 05/01/16 05/02/16 05/03/16 05:59 05:59 05:59 Intake Total 1410 1644 820 Output Total 3180 8015 7925 Balance -1770 -6371 -7105 PT 16.0 SEC (12.0-15.0) H 04/28/16 09:02 INR 1.28 (0.83-1.16) H 04/28/16 09:02 tele personally viewed interpreted atrial fibrillation discussed with Cardiology - Physical Exam Constitutional: no apparent distress, appears nourished, not in pain Eyes: anicteric sclera, EOMI Ears, Nose, Mouth, Throat: moist mucous membranes, hearing normal, ears appear normal Cardiovascular: irregularly irregular, edema ( 2+ but improving) Respiratory: no respiratory distress, no rales or rhonchi, clear to auscultation Skin: warm Neurologic: AAOx3 Psychiatric: interacting appropriately, not anxious, not encephalopathic, thought process linear ICD10 Worksheet Patient Problems: Problems Problem Status Onset Atrial fibrillation Acute Congestive heart failure Acute
[2016-05-03 04:35] LABS: HEMATOCRIT 50.1 % (40.0-51.0); MEAN CELL HEMOGLOBIN 32.9 pg (27.9-34.1); MEAN CELL HEMOGLOBIN CONCENTR. 33.9 g/dL (32.4-36.7); MEAN CELL VOLUME 97.1 fL (81.5-99.8); RED BLOOD CELL COUNT 5.16 10^6/uL (4.40-6.38); RED CELL DISTRIBUTION WIDTH 12.5 % (11.5-15.2)
[2016-05-03] MEDS: FUROSEMIDE 100 MG in D5W 100 ML IV SCH (04:39)
[2016-05-03 04:59] LABS: ANION GAP 10 mEq/L (8-16); CALCIUM 9.3 mg/dL (8.5-10.4); CARBON DIOXIDE 32 mEq/l (22-31); CHLORIDE 92 mEq/L (97-110); CREATININE 0.9 mg/dL (0.7-1.3); GLOMERULAR FILTRATION RATE > 60; GLUCOSE 120 mg/dL (70-100); MAGNESIUM 1.7 mg/dL (1.6-2.3); POTASSIUM 3.4 mEq/L (3.5-5.2); SODIUM 134 mEq/L (134-144)
[2016-05-03] MEDS: acetaZOLAMIDE 250 MG TAB PO SCH ×2 (10:12→22:44)
[2016-05-03] MEDS: POTASSIUM CL 20 MEQ PKT PO SCH ×3 (10:13→22:44)
[2016-05-03] MEDS: AMIODARONE HCL 200 MG TAB PO SCH ×3 (10:13→22:43)
[2016-05-03] MEDS: APIXABAN 5 MG TAB PO SCH ×2 (10:13→22:43)
[2016-05-03] MEDS: MAGNESIUM CHLORIDE 64 MG TAB PO SCH ×2 (10:13→22:45)
[2016-05-03] MEDS: CARVEDILOL 6.25 MG TAB PO SCH ×2 (10:13→18:27)
[2016-05-03] MEDS: SPIRONOLACTONE 25 MG TAB PO SCH ×2 (10:13→22:44)
[2016-05-03] MEDS: DIGOXIN 250 MCG TAB PO SCH (10:13)
[2016-05-03] MEDS: LISINOPRIL 2.5 MG TAB PO SCH (11:39)
[2016-05-03] MEDS: FUROSEMIDE 80 MG TAB PO SCH (15:24)
--- NOTE | 2016-05-03 16:38 | SOAPPROG ---
SOAP Progress Note Assessment/Plan: Assessment: 1. Severe, nonischemic dilated cardiomyopathy likely related to alcohol abuse and possibly atrial fibrillation with rapid ventricular response. 2. [employer] heart Association functional class 4 acute systolic congestive heart failure. 3. Paroxysmal atrial fibrillation. 4. Morbid but obesity. 5. Obstructive sleep apnea. 6. Polysubstance abuse. Plan: 1. He has been transitioned over to p.o. diuretics today . His other medications will be continued. 2. Will continue with systemic anticoagulation. 3. I wonder if he might benefit from TAYA/cardioversion prior to discharge from the hospital. 4. We will follow along with you. 05/03/16 16:40 Subjective: He states he feels much better. His breathing has improved dramatically. He notes that he continues to have mild lower extremity edema. He denies orthopnea PND. He is not having any chest discomfort. Objective: Vital Signs Temp Pulse Resp BP Pulse Ox 36.6 C 72 20 96/81 H 93 05/03/16 15:26 05/03/16 15:26 05/03/16 15:26 05/03/16 15:26 05/03/16 15:26 Laboratory Results 05/03/16 04:13 05/03/16 04:13 05/02/16 05/03/16 05/04/16 05:59 05:59 05:59 Intake Total 1644 2161 700 Output Total 8015 03967 5480 [facility] -6371 -05875 -2650 PT 16.0 SEC (12.0-15.0) H 04/28/16 09:02 INR 1.28 (0.83-1.16) H 04/28/16 09:02 Physical Exam - Physical Exam General Appearance: WD/WN, no apparent distress Neck: non-tender, full range of motion Respiratory: chest non-tender, lungs clear Cardiac/Chest: edema (Pitting edema to 2-3 inches above the ankle.), irregularly irregular, No gallop, No JVD Peripheral Pulses: 2+: carotid (R), carotid (L) Neuro/Psych: alert, normal mood/affect, oriented x 3 ICD10 Worksheet Patient Problems: Problems Problem Status Onset Atrial fibrillation Acute Congestive heart failure Acute
--- NOTE | 2016-05-03 18:41 | HOSPPROG ---
Hospitalist Progress Note Assessment/Plan: Assessment: 51-year-old male presents with acute systolic congestive heart failure exacerbation in the setting of atrial fibrillation with rapid ventricular response, nonischemic cardiomyopathy Plan: # Acute systolic CHF exacerbation. Evidenced by CXR w/ pulm edema (personally interpreted) + BNP 2500 + elevated trop 0.07 + clinical hypervolemia, 2/2 med non-adherence and likely uncontrolled Afib - net neg 13L o/n, neg 22kg LOS - patient reports he needs to discharge 3/8 PM - since he is breathing well on room air, will transition off of lasix gtt and onto 80mg PO bid now, gauge response - cont w/ K supplement, Mg supplement, monitor Cr - cont w/ ACEi, aldactone, bblocker - EF 15% on Echo, repeat as outpt after a trial of med adherence # Non-ischemic cardiomyopathy. Chronic, 2/2 EtOH - rec alcohol abstinence # Persistent Atrial Fibrillation. Acute RVR, plan to either DCCV prior to DC or in several weeks - will d/w Dr. Jacobs in AM - cont on amio tid - cont on eliquis # Morbid obesity. BMI 42, increases risk of morbidity # ZHENG. Rec outpt tx Diet. Cardiac Ppx. High risk, on eliquis Code. Full Dispo. ADD 38 PM Subjective: Reports he is still feeling somewhat short of breath with ambulating Objective: Vital Signs Temp Pulse Resp BP Pulse Ox 36.6 C 76 20 103/75 93 05/03/16 15:26 05/03/16 18:27 05/03/16 15:26 05/03/16 18:27 05/03/16 15:26 Laboratory Results 05/03/16 04:13 05/03/16 04:13 05/02/16 05/03/16 05/04/16 05:59 05:59 05:59 Intake Total 1644 2161 950 Output Total 4649 20868 9724 [facility] -0779 -48567 -9652 PT 16.0 SEC (12.0-15.0) H 04/28/16 09:02 INR 1.28 (0.83-1.16) H 04/28/16 09:02 - Pending Discharge Pending Discharge Within 24 Hours: Yes Pending Discharge Date: 05/04/16 Pending Discharge Time: 11:00 - Physical Exam Constitutional: no apparent distress, not in pain, obese, No uncomfortable Cardiovascular: irregularly irregular, edema (+bilateral lower extremity), No systolic murmur, No tachycardia Respiratory: inspiratory crackles (Bilateral bases), No reduced air movement, No expiratory wheeze, No bronchial breath sounds Gastrointestinal: normoactive bowel sounds, soft, non-tender abdomen, no palpable masses Neurologic: AAOx3, sensation intact bilaterally Psychiatric: interacting appropriately, not anxious, not encephalopathic, thought process linear ICD10 Worksheet Patient Problems: Problems Problem Status Onset Atrial fibrillation Acute Congestive heart failure Acute
[2016-05-04 07:15] VITALS: TEMP 97.7
[2016-05-04] MEDS: FUROSEMIDE 80 MG TAB PO SCH ×2 (09:06→15:26)
[2016-05-04] MEDS: CARVEDILOL 6.25 MG TAB PO SCH (09:06)
[2016-05-04] MEDS: DIGOXIN 250 MCG TAB PO SCH (09:07)
[2016-05-04] MEDS: acetaZOLAMIDE 250 MG TAB PO SCH (09:07)
[2016-05-04] MEDS: LISINOPRIL 2.5 MG TAB PO SCH (09:07)
[2016-05-04] MEDS: MAGNESIUM CHLORIDE 64 MG TAB PO SCH (09:07)
[2016-05-04] MEDS: SPIRONOLACTONE 25 MG TAB PO SCH (09:07)
[2016-05-04] MEDS: APIXABAN 5 MG TAB PO SCH (09:07)
[2016-05-04] MEDS: POTASSIUM CL 20 MEQ PKT PO SCH (09:07)
[2016-05-04] MEDS: AMIODARONE HCL 200 MG TAB PO SCH (09:07)
--- NOTE | 2016-05-04 09:56 | SOAPPROG ---
SOAP Progress Note Assessment/Plan: Assessment: 51 y/o man with chronic morbid obesity with "dry weight" at 330lbs and CHF since 2011 with ETOH use. Had normalized his LVEF off ETOH but then relapse and now admitted two days ago with 45lbs weight gain and decompensated CHF and afib. Echo now LVEF 15% with LVEDD 6.5cm, normal RVEF, and mild TR. He is diuresis and feeling less short of breath. Denies CP, palpitations or angina. He appears nearing euvolemia today. REC: 1)decrease Amiodarone 200mg PO BID 2)decrease Aldactone 25mg PO qam. 3)decrease KCL to 20meq PO BID. 4)check labs now (CBC, CMP, Digoxin level and BNP level) 5)allow to eat now. 6)home later this afternoon with f/u [facility] next saturday 05/13 with ecg 7)fluid restriction 60 oz/day and low NACL 1800mmols/day 8)if still in afib in 2-3 wks will do TAYA and CV Thanks. 05/04/16 09:53 Subjective: feels much better. Ambulated 200ft in hallways without CP, palpitations, ALMONTE or syncope. Denies PND or muscle cramping. Objective: Vital Signs Temp Pulse Resp BP Pulse Ox 36.5 C 65 18 105/75 96 05/04/16 07:14 05/04/16 07:14 05/04/16 07:14 05/04/16 07:14 05/04/16 07:14 Laboratory Results 05/03/16 04:13 05/03/16 04:13 05/03/16 05/04/16 05/05/16 05:59 05:59 05:59 Intake Total 2161 1300 Output Total 69439 5275 Balance -28479 -5625 PT 16.0 SEC (12.0-15.0) H 04/28/16 09:02 INR 1.28 (0.83-1.16) H 04/28/16 09:02 Physical Exam - Physical Exam General Appearance: alert, obese EENT: PERRL/EOMI Neck: full range of motion Respiratory: lungs clear Cardiac/Chest: systolic murmur, irregularly irregular, No gallop, No JVD Peripheral Pulses: 2+: carotid (R), carotid (L), femoral (R), femoral (L), dorsalis-pedis (R), dorsalis-pedis (L) Abdomen: non-tender, distended, No guarding Skin: warm/dry Extremities: No pedal edema Neuro/Psych: alert ICD10 Worksheet Patient Problems: Problems Problem Status Onset Atrial fibrillation Acute Congestive heart failure Acute
[2016-05-04 10:36] LABS: ALANINE AMINOTRANSFERASE 60 IU/L (21-72); ALBUMIN 4.2 g/dL (3.5-5.0); ALKALINE PHOSPHATASE 74 IU/L (38-126); ANION GAP 14 mEq/L (8-16); ASPARTATE AMINOTRANSFERASE 74 IU/L (17-59); BILIRUBIN,TOTAL 1.6 mg/dL (0.1-1.4); CALCIUM 9.8 mg/dL (8.5-10.4); CARBON DIOXIDE 26 mEq/l (22-31); CHLORIDE 97 mEq/L (97-110); DIGOXIN 0.8 ng/mL (0.8-2.0); GLOMERULAR FILTRATION RATE > 60; GLUCOSE 113 mg/dL (70-100); POTASSIUM 4.3 mEq/L (3.5-5.2); SODIUM 137 mEq/L (134-144); TOTAL PROTEIN 7.6 g/dL (6.3-8.2)
[2016-05-04 11:33] VITALS: BP 112/79; PULSE 75; RESP 16; O2SAT 95
--- NOTE | 2016-05-04 17:48 | PDDCSUM ---
Discharge Summary Discharge Summary: DISCHARGE SUMMARY FOLLOW-UP ITEMS: Repeat creatinine BUN and lytes next week as an outpatient DATE OF ADMISSION: 04/28/2016 DATE OF DISCHARGE: 05/04/2016 DISCHARGE DIAGNOSES: 1. Acute systolic congestive heart failure exacerbation 2. Nonischemic cardiomyopathy 3. Persistent atrial fibrillation 4. Morbid obesity 5. ZHENG CONSULTATIONS: Cardiology PROCEDURES / IMAGING: Echocardiogram demonstrating ejection fraction of 15%, ultrasound demonstrating moderate ascites CHIEF COMPLAINT: Shortness of breath, lower extremity edema, weight gain SUBJECTIVE: Patient reports he is feeling well at time of discharge, he is able to ambulate without significant amount of shortness of breath PHYSICAL EXAM ON DISCHARGE: Systolic blood pressure is 100, heart rate 70, afebrile overnight, satting well on room air, net-4 L overnight, net negative 25 kg during length of stay obese male, faint inspiratory crackles in the bilateral bases, trace bilateral lower extremity edema, heart rhythm is irregularly irregular LABS ON DISCHARGE: Creatinine 1.0, potassium 4.3 HOSPITAL COURSE BY PROBLEM: 1. Acute systolic congestive heart failure exacerbation. Evidenced by chest x- ray with pulmonary edema, BNP of 2500, clinical hypovolemia and recent relapse with alcohol resulting in reduction of his ejection fraction back to 15%. He also has uncontrolled atrial fibrillation which is also likely reducing his cardiac output. Patient was aggressively diuresed during this hospitalization with a Lasix drip, resulting in a net-25 kg during this hospitalization. He also received acetazolamide as needed to alleviate his contraction alkalosis. The patient had Benny inhibitor, Aldactone, beta-sharda introduced and he will remain on these medications moving forward. Was also placed on a potassium supplement and he was adjusted to oral Lasix 24 hours prior to discharge, maintaining a net negative fluid balance. 2. Nonischemic cardiomyopathy. This is chronic with fluctuations in his ejection fraction based on whether the patient is drinking alcohol or not. Patient has recently relapsed and his ejection fraction has declined. We have recommended alcohol abstinence. He will also be maintained on the above- mentioned medications. 3. Persistent atrial fibrillation. Patient experienced acute rapid ventricular response, he was placed on digoxin and amiodarone for rhythm control as well as carvedilol for rate control. He has been initiated on systemic anticoagulation with Eliquis and will be considered for DC cardioversion in 4 weeks. 4. Morbid obesity. BMI 42, increased risk of morbidity. 5. ZHENG. Chronic, recommend outpatient evaluation. DISCHARGE MEDICATIONS: Please see official discharge medication reconciliation sheet in chart , digoxin , amiodarone, potassium, Lasix, carvedilol, Aldactone, lisinopril, Eliquis. DISCHARGE INSTRUCTIONS: Please follow up with Dr. Jacobs on 05/13. TIME SPENT: Greater than 30 minutes were spent on direct patient care, as well as discharge planning and preparation.
[2016-05-04] MEDS ORDERED: POTASSIUM CL 20 MEQ PKT PO SCH (21:00)
[2016-05-04] MEDS ORDERED: AMIODARONE HCL 200 MG TAB PO SCH (21:00)
[2016-05-05] MEDS ORDERED: SPIRONOLACTONE 25 MG TAB PO SCH (09:00)
== END 2016-05-04 17:38 | disposition home or self-care (01) | DRG 292 ==
LOC: F2W 12:04
PROVIDERS: ADMIT Internal Medicine; ATTEND Internal Medicine
DX: I50.21 Acute systolic (congestive) heart failure (principal); I48.0 Paroxysmal atrial fibrillation; E11.9 Type 2 diabetes mellitus without complications; G47.33 Obstructive sleep apnea (adult) (pediatric); E66.01 Morbid (severe) obesity due to excess calories; Z68.41 Body mass index [BMI] 40.0-44.9, adult; I42.9 Cardiomyopathy, unspecified; F17.210 Nicotine dependence, cigarettes, uncomplicated
CPT/HCPCS: 96374; 97161-GP; G0480

== ENCOUNTER 2016-05-16 06:56 | Day surgery (SDC) | payer MEDICAID, OTHER ==
[2016-05-16] MEDS ORDERED: PROPOFOL 200 MG/20 ML VIAL IVP ONE (07:01)
[2016-05-16] MEDS ORDERED: NS 500 ML IV ONE (07:01)
[2016-05-16] MEDS ORDERED: fentaNYL 100 MCG/2 ML INJ IVP ONE (07:01)
[2016-05-16] MEDS ORDERED: ETOMIDATE 20 MG/10 ML VIAL IVP ONE (07:01)
[2016-05-16] MEDS ORDERED: BENZOCAINE UNIT DOSE SPRAY HURRICAINE MM ONE (07:01)
[2016-05-16] MEDS ORDERED: MIDAZOLAM 2 MG/2 ML VIAL IVP ONE (07:01)
--- NOTE | 2016-05-16 07:20 | CPEKG ---
Heart Rate: 75 RR Interval: 800 QRSD Interval: 114 QT Interval: 468 QTC Interval: 523 QRS [place]: 101 EKG Severity - ABNORMAL ECG - EKG Impression: ATRIAL FIBRILLATION, V-RATE 62-86 EKG Impression: NONSPECIFIC INTRAVENTRICULAR CONDUCTION DELAY EKG Impression: PROBABLE ANTEROSEPTAL INFARCT, AGE INDETERM Electronically Signed By: Rafy Correa 16-May-2016 08:16:23
[2016-05-16 07:45] LABS: APTT 32.8 SEC (23.0-38.0); INR 1.19 (0.83-1.16); PROTIME(PATIENT) 15.1 SEC (12.0-15.0)
[2016-05-16 08:07] LABS: ANION GAP 15 mEq/L (8-16); CALCIUM 9.5 mg/dL (8.5-10.4); CARBON DIOXIDE 25 mEq/l (22-31); CHLORIDE 99 mEq/L (97-110); CREATININE 0.7 mg/dL (0.7-1.3); DIGOXIN 0.9 ng/mL (0.8-2.0); GLOMERULAR FILTRATION RATE > 60; GLUCOSE 214 mg/dL (70-100); MAGNESIUM 1.6 mg/dL (1.6-2.3); POTASSIUM 4.8 mEq/L (3.5-5.2); SODIUM 139 mEq/L (134-144)
--- NOTE | 2016-05-16 08:46 | CPEKG ---
Heart Rate: 61 RR Interval: 984 P-R Interval: 264 QRSD Interval: 114 QT Interval: 508 QTC Interval: 512 P [place]: 30 QRS [place]: 103 T Wave [place]: 113 EKG Severity - ABNORMAL ECG - EKG Impression: SINUS RHYTHM EKG Impression: ATRIAL PREMATURE COMPLEX EKG Impression: FIRST DEGREE AV BLOCK EKG Impression: LEFT ATRIAL ABNORMALITY EKG Impression: INCOMPLETE RIGHT BUNDLE BRANCH BLOCK EKG Impression: ABNRM R PROG, CONSIDER ASMI OR LEAD PLACEMENT Electronically Signed By: Rafy Correa 16-May-2016 09:15:19
[2016-05-16] MEDS ORDERED: HYDROCORTISONE 1% CREAM TP SCH (09:15)
--- NOTE | 2016-05-16 09:45 | CPR ---
[f rep st] NONINVASIVE CARDIAC PROCEDURE REPORT DATE OF PROCEDURE: 05/16/2016 PROCEDURE PERFORMED: Electrical cardioversion. INDICATIONS: Atrial fibrillation with severe nonischemic cardiomyopathy. CONSENT: Signed. Risks, benefits, and alternatives discussed with patient. He wishes to proceed. MEDICATIONS USED DURING PROCEDURE: Propofol 200 mg IV per Anesthesia Service with continuous pulse oximetry and hemodynamic monitoring. TECHNICAL DIFFICULTIES: None. DESCRIPTION OF PROCEDURE AND RESULTS: The patient initially was in atrial fibrillation with a ventr icular rate of 100 beats per minute and a blood pressure of 135/93. After a transesophageal echo wa s done immediately beforehand which showed no evidence of cardiac clots, it was elected to proceed w ith cardioversion. He had biphasic AP pads on. He initially got a 250 joule synchronized shock whi ch did not convert him to sinus rhythm. A second shock at 300 joules synchronized successfully card ioverted him to sinus bradycardia at 59 beats per minute with a post cardioversion blood pressure of 143/108. He awoke from sedation with no new neurological deficits. COMPLICATIONS: None. FINAL IMPRESSIONS: Successful cardioversion of atrial fibrillation to sinus rhythm using 2 shocks, initially 250 joules, then 300 joules synchronized. NOTE: The patient's lisinopril will be increased from 5 to 10 mg per day. His amiodarone will be d ecreased from 200 mg b.i.d. to 200 mg per day. The rest of his medications are unchanged, and he wi ll follow up in the [facility] in 2 weeks with an EKG. Copy requested to: Patient's chart at [facility] /[id number]/MODL
--- NOTE | 2016-05-16 15:58 | ECHO ---
[id number] + + [address] : : [facility] [address] : : [phone] + + Transesophageal Echocardiographic Report + -----+ :Name: ERMELINDA MOdomoniquejoel Date: 05/16/2016 08:13 AM : : Hospital Admission Number: [id number] Location : C: :: 1965 Gender: Male : :Age: 51 yrs Race: WH,White : :Reason For Study: Eval LV Fx : :History: Pre Cardioversion : + -----+ Left Ventricle Moderate to severely reduced LV systolic function with a LVEF of 28%. Atria Spontaneous contrast in LA. Spontaneous contrast in left atrial appendage. No left atrial mass or thrombus visualized. No thrombus is detected in the left atrial appendage. Mitral Valve Mild to moderate MR without MV prolapse. Aortic Valve The aortic valve is trileaflet. The aortic valve opens well. There is no aortic stenosis. There is no aortic insufficiency. Pulmonic Valve The pulmonic valve is normal in structure and function. Conclusion A 2D transesophageal echocardiogram with color flow Doppler was performed. 1)Moderate to severely reduced LV systolic function with a LVEF of 28%. 2)Moderate LAE with spontaneous smoke but no JOANNA clot. PW doppler in JOANNA 10cm/sec. 3)Mild to moderate MR without MV prolapse. 4)No ASD or PFO noted. 5)Upper normal size ascending thoracic aorta 3.6cm with no dissection flap. Final Reading Physician: Daquan Jacobs electronically signed on 05/16/2016 03:57 PM Ordering Physician: Daquan Jacobs Performed By: Ced De Jesus, KALACS
== END 2016-05-16 13:14 | disposition home or self-care (01) ==
LOC: FCATH 06:56
PROVIDERS: ATTEND Internal Medicine Cardiovascular Disease
PROC: 5A2204Z Restoration of Cardiac Rhythm, Single (ICD-10-PCS; principal; 2016-05-16)
PROC: B246ZZ4 Ultrasonography of Right and Left Heart, Transesophageal (ICD-10-PCS; principal; 2016-05-16)
DX: I48.91 Unspecified atrial fibrillation (principal); I50.21 Acute systolic (congestive) heart failure; I42.9 Cardiomyopathy, unspecified; G47.33 Obstructive sleep apnea (adult) (pediatric)
CPT/HCPCS: J2704

== ENCOUNTER 2016-06-20 08:26 | Day surgery (SDC) | payer MEDICAID ==
[2016-06-20] MEDS ORDERED: MIDAZOLAM 2 MG/2 ML VIAL IVP ONE (08:30)
[2016-06-20] MEDS ORDERED: BENZOCAINE UNIT DOSE SPRAY HURRICAINE MM ONE (08:30)
[2016-06-20] MEDS ORDERED: NS 500 ML IV ONE (08:30)
[2016-06-20] MEDS ORDERED: PROPOFOL 200 MG/20 ML VIAL IVP ONE (08:30)
[2016-06-20] MEDS ORDERED: fentaNYL 100 MCG/2 ML INJ IVP ONE (08:30)
[2016-06-20] MEDS ORDERED: IOPAMIDOL (ISOVUE 370) 100 ML BTL IV ONE (08:43)
--- NOTE | 2016-06-20 08:49 | CPEKG ---
Heart Rate: 85 RR Interval: 706 QRSD Interval: 112 QT Interval: 444 QTC Interval: 528 QRS [place]: 92 T Wave [place]: 33 EKG Severity - ABNORMAL ECG - EKG Impression: ATRIAL FIBRILLATION, V-RATE 67-127 EKG Impression: LEFT POSTERIOR FASCICULAR BLOCK EKG Impression: ABNRM R PROG, CONSIDER ASMI OR LEAD PLACEMENT Electronically Signed By: Daquan Jacobs 21-Jun-2016 06:32:48
[2016-06-20] MEDS ORDERED: ATROPINE SULFATE 1 MG/10 ML SYR ONE (09:03)
[2016-06-20 09:23] LABS: INR 1.24 (0.83-1.16); PROTIME(PATIENT) 15.6 SEC (12.0-15.0)
[2016-06-20 09:24] LABS: APTT 33.1 SEC (23.0-38.0)
[2016-06-20 09:36] LABS: ANION GAP 12 mEq/L (8-16); CALCIUM 9.6 mg/dL (8.5-10.4); CARBON DIOXIDE 26 mEq/l (22-31); CHLORIDE 98 mEq/L (97-110); CREATININE 0.6 mg/dL (0.7-1.3); GLOMERULAR FILTRATION RATE > 60; GLUCOSE 250 mg/dL (70-100); MAGNESIUM 1.8 mg/dL (1.6-2.3); POTASSIUM 5.1 mEq/L (3.5-5.2); SODIUM 136 mEq/L (134-144)
[2016-06-20] MEDS ORDERED: ETOMIDATE 40 MG/20 ML INJ ONE (09:57)
[2016-06-20 10:01] LABS: HEMOGLOBIN A1C 8.9 % (4.0-6.0)
--- NOTE | 2016-06-20 10:19 | CPEKG ---
Heart Rate: 69 RR Interval: 870 P-R Interval: 252 QRSD Interval: 114 QT Interval: 420 QTC Interval: 450 P [place]: 73 QRS [place]: 77 T Wave [place]: 52 EKG Severity - ABNORMAL ECG - EKG Impression: SINUS RHYTHM EKG Impression: FIRST DEGREE AV BLOCK EKG Impression: JOANNA, CONSIDER BIATRIAL ABNORMALITIES EKG Impression: INCOMPLETE RIGHT BUNDLE BRANCH BLOCK EKG Impression: CONSIDER ANTEROSEPTAL INFARCT Electronically Signed By: Daquan Jacobs 21-Jun-2016 06:32:38
--- NOTE | 2016-06-20 10:34 | PDTEE1 ---
TAYA Cardioversion Procedure Procedure: Electrical Cardioversion, Transesophageal Echo Indications: Atrial Fibrillation, Cardiomyopathy Consent: Signed and in Chart Anticoagulation: Eliquis Procedural Details: Pads were placed in anterior-posterior position. TAYA probe was advanced and standard images obtained. There is no evidence of left atrial or left atrial appendage thrombus. Synchronized cardioversion attempt #1: 200J Synchronized cardioversion attempt #2: 300J Results: Normal sinus rhythm Conclusions: Successful TAYA Cardioversion Patient Problems: Problems Problem Status Onset Atrial fibrillation Acute Congestive heart failure Acute
== END 2016-06-20 11:30 | disposition home or self-care (01) ==
LOC: FCATH 08:26
PROVIDERS: ATTEND Internal Medicine Interventional Cardiology
PROC: 5A2204Z Restoration of Cardiac Rhythm, Single (ICD-10-PCS; principal; 2016-06-20)
PROC: B246ZZ4 Ultrasonography of Right and Left Heart, Transesophageal (ICD-10-PCS; principal; 2016-06-20)
DX: I48.91 Unspecified atrial fibrillation (principal); E11.9 Type 2 diabetes mellitus without complications; E66.9 Obesity, unspecified; G47.33 Obstructive sleep apnea (adult) (pediatric); I50.9 Heart failure, unspecified
CPT/HCPCS: J0461; Q9967

== ENCOUNTER → 2016-07-19 | Outpatient (CLI) | payer MEDICAID | LOC: FCPNEURO 23:13 | PROVIDERS: ATTEND Internal Medicine Sleep Medicine | DX: G47.33 Obstructive sleep apnea (adult) (pediatric) (principal); G47.36 Sleep related hypoventilation in conditions classified elsewhere ==

== ENCOUNTER 2016-09-22 10:00 | Day surgery (SDC) | payer MEDICAID ==
[2016-09-22] MEDS ORDERED: fentaNYL 100 MCG/2 ML INJ IVP ONE (10:09)
[2016-09-22] MEDS ORDERED: PROPOFOL 200 MG/20 ML VIAL IVP ONE (10:09)
[2016-09-22] MEDS ORDERED: MIDAZOLAM 2 MG/2 ML VIAL IVP ONE (10:09)
[2016-09-22] MEDS ORDERED: NS 500 ML IV ONE (10:09)
--- NOTE | 2016-09-22 10:29 | CPEKG ---
Heart Rate: 84 RR Interval: 714 QRSD Interval: 120 QT Interval: 424 QTC Interval: 502 QRS [place]: 94 T Wave [place]: 70 EKG Severity - ABNORMAL ECG - EKG Impression: ATRIAL FIBRILLATION, V-RATE 72-97 EKG Impression: LEFT POSTERIOR FASCICULAR BLOCK Electronically Signed By: Carlos Severino 22-Sep-2016 11:23:13
[2016-09-22 10:59] LABS: ANION GAP 13 mEq/L (8-16); CALCIUM 9.4 mg/dL (8.5-10.4); CARBON DIOXIDE 23 mEq/l (22-31); CHLORIDE 101 mEq/L (97-110); CREATININE 0.7 mg/dL (0.7-1.3); GLOMERULAR FILTRATION RATE > 60; GLUCOSE 166 mg/dL (70-100); INR 1.18 (0.83-1.16); MAGNESIUM 1.9 mg/dL (1.6-2.3); POTASSIUM 4.7 mEq/L (3.5-5.2); SODIUM 137 mEq/L (134-144)
[2016-09-22 11:00] LABS: APTT 31.3 SEC (23.0-38.0)
[2016-09-22] MEDS ORDERED: ATROPINE SULFATE 1 MG/10 ML SYR ONE (11:11)
[2016-09-22] MEDS ORDERED: PROPOFOL/EMULSION 500 MG/50 ML BOTTLE IV ONE (11:27)
--- NOTE | 2016-09-22 11:48 | CPEKG ---
Heart Rate: 55 RR Interval: 1091 P-R Interval: 252 QRSD Interval: 116 QT Interval: 476 QTC Interval: 456 P [place]: 43 QRS [place]: 92 T Wave [place]: 77 EKG Severity - ABNORMAL ECG - EKG Impression: SINUS RHYTHM EKG Impression: FIRST DEGREE AV BLOCK EKG Impression: LEFT ATRIAL ABNORMALITY EKG Impression: BORDERLINE R WAVE PROGRESSION, ANTERIOR LEADS Electronically Signed By: Carlos Severino 23-Sep-2016 10:09:16
--- NOTE | 2016-09-22 13:15 | CPR ---
[f rep st] NONINVASIVE CARDIAC PROCEDURE REPORT DATE OF PROCEDURE: 09/22/2016 PROCEDURE PERFORMED: Electrical cardioversion. INDICATIONS: Atrial fibrillation and shortness of breath. CONSENT: Signed. Risks, benefits, and alternatives discussed with patient. He wishes to proceed. TECHNICAL DIFFICULTIES: None. MEDICATIONS USED DURING PROCEDURE: Propofol 230 mg IV per Anesthesia, with continuous pulse oximetr y and hemodynamic monitoring. DESCRIPTION OF PROCEDURE AND RESULTS: The patient has been on uninterrupted Eliquis, and so no juarez sesophageal echo was done beforehand. He was initially in atrial fibrillation with a heart rate of 70 beats per minute and a blood pressure of 118/74. After adequate sedation, a 300 joule synchroniz ed shock was delivered with AP biphasic pads. He converted on his first shock to sinus bradycardia at 52 beats per minute, with a post cardioversion blood pressure of 110/54. He awoke from sedation with no new neurological deficits. COMPLICATIONS: None. FINAL IMPRESSION: Successful cardioversion of atrial fibrillation to sinus bradycardia with single joule synchronized shock. PLAN: The patient will be discharged home on his current medications. He will follow up in clinic in 10 days, with an EKG to confirm he is still in sinus rhythm. /[id number]/MODL
== END 2016-09-22 13:00 | disposition home or self-care (01) ==
LOC: FCATH 10:00
PROVIDERS: ATTEND Internal Medicine Cardiovascular Disease
PROC: 5A2204Z Restoration of Cardiac Rhythm, Single (ICD-10-PCS; principal; 2016-09-22)
DX: I48.91 Unspecified atrial fibrillation (principal); I50.9 Heart failure, unspecified; R06.02 Shortness of breath; E66.01 Morbid (severe) obesity due to excess calories; E11.9 Type 2 diabetes mellitus without complications; G47.33 Obstructive sleep apnea (adult) (pediatric); F17.200 Nicotine dependence, unspecified, uncomplicated
CPT/HCPCS: J0461; J2704

== ENCOUNTER 2017-06-05 07:59 | Inpatient (IN) | payer MEDICAID ==
--- NOTE | 2017-06-05 10:34 | CPEKG ---
Heart Rate: 117 RR Interval: 513 QRSD Interval: 98 QT Interval: 344 QTC Interval: 480 QRS [place]: 98 T Wave [place]: 26 EKG Severity - ABNORMAL ECG - EKG Impression: ATRIAL FIBRILLATION, V-RATE 87-160 EKG Impression: BORDERLINE RIGHT AXIS DEVIATION EKG Impression: BORDERLINE PROLONGED QT INTERVAL Electronically Signed By: Jose A Jiang 05-Jun-2017 10:57:13
[2017-06-05] MEDS ORDERED: ACETAMINOPHEN 325 MG TAB PO PRN (11:34)
[2017-06-05] MEDS ORDERED: METHYL SALICYLATE TP PRN ×2 (11:37→11:45)
[2017-06-05] MEDS ORDERED: MENTHOL TP PRN ×2 (11:37→11:45)
--- NOTE | 2017-06-05 11:49 | PDCARPN ---
Cardiology Progress Note Chief Complaint: Atrial fibrillation Assessment/Plan: Assessment/Plan: Keith is a 52 y/o M with a history of NICMP likely ETOH induced and persistent atrial fibrillation. He stopped drinking 9 months ago and his EF normalized. He has persistent atrial fibrillation with fatigue and therefore is being admitted for Tikosyn loading. His Mag is 1.4 and will be replaced per protocol and Tikosyn started this evening at 500mcg BID. He will be here for more then two nights and therefore will be inpatient. Continue Eliquis for CVA prophylaxis. He will continue a BB and BRADLY-I for his NICMP. 06/05/17 14:34 Subjective: He is complaining of fatigue. Objective: Vital Signs (8 Hrs) Pulse Resp BP 06/05/17 09:56 120 H 20 103/77 Intake/Output (24 Hrs) 06/04/17 06/05/17 06/06/17 05:59 05:59 05:59 Other: Weight 149.685 kg Result Diagrams: 06/05/17 12:10 06/05/17 12:10 - Physical Exam Constitutional: obese Cardiovascular: irregularly irregular Respiratory: clear to auscultate bilat, no crackles, no wheezes Skin: no edema Neurologic: AAOx3 ICD10 Worksheet Patient Problems: Problems Problem Status Onset Atrial fibrillation Acute Congestive heart failure Acute
[2017-06-05 12:24] LABS: PLATELET COUNT 183 10^3/uL (150-400)
--- NOTE | 2017-06-05 12:28 | PDMN ---
Medical Necessity Medical necessity: est los>2mn for persistent symptomatic a fib with fatigue; admit for Tikosyn dosing with high risk medication protocol; hx NICMP, likely etoh induced; per order and progress note 06/05/17 [id number]
[2017-06-05 12:47] LABS: INR 1.27 (0.83-1.16); PROTIME(PATIENT) 16.1 SEC (12.0-15.0)
[2017-06-05] MEDS ORDERED: PROTOCOL MAGNESIUM 1 DOSE IV PRN (13:41)
[2017-06-05] MEDS ORDERED: MAGNESIUM SULF 2 GM/WATER 50 ML IV ONE (13:49)
[2017-06-05] MEDS ORDERED: MAGNESIUM SULF 2 GM/WATER 50 ML BAG IV ONE (13:52)
[2017-06-05] MEDS: FUROSEMIDE 80 MG TAB PO SCH (16:51)
[2017-06-05] MEDS: CARVEDILOL 25 MG TAB PO SCH (18:04)
[2017-06-05] MEDS: APIXABAN 5 MG TAB PO SCH (20:56)
[2017-06-05] MEDS: DOFETILIDE 0.5 MG CAP PO SCH (20:56)
[2017-06-05] MEDS ORDERED: MAGNESIUM CHLORIDE 64 MG TAB PO SCH (21:00)
--- NOTE | 2017-06-05 23:10 | CPEKG ---
Heart Rate: 94 RR Interval: 638 QRSD Interval: 108 QT Interval: 416 QTC Interval: 521 QRS [place]: 91 T Wave [place]: 37 EKG Severity - ABNORMAL ECG - EKG Impression: ATRIAL FIBRILLATION, V-RATE 73-121 EKG Impression: LEFT POSTERIOR FASCICULAR BLOCK EKG Impression: PROLONGED QT INTERVAL Electronically Signed By: Mile Morales 06-Jun-2017 07:00:32
[2017-06-06 04:59] LABS: INR 1.27 (0.83-1.16); PROTIME(PATIENT) 16.1 SEC (12.0-15.0)
[2017-06-06] MEDS ORDERED: ATROPINE SULFATE 1 MG/10 ML SYR IVP ONE (06:00)
[2017-06-06] MEDS: POTASSIUM CL 20 MEQ TAB PO SCH (07:18)
[2017-06-06] MEDS ORDERED: EPLERENONE 50 MG PO SCH (09:00)
--- NOTE | 2017-06-06 09:04 | CPEKG ---
Heart Rate: 97 RR Interval: 619 QRSD Interval: 108 QT Interval: 388 QTC Interval: 493 QRS [place]: 98 T Wave [place]: 47 EKG Severity - ABNORMAL ECG - EKG Impression: ATRIAL FIBRILLATION, V-RATE 76-115 EKG Impression: BORDERLINE PROLONGED QT INTERVAL Electronically Signed By: Mile Morales 06-Jun-2017 11:00:24
[2017-06-06] MEDS: EPLERENONE 25 MG TAB PO SCH (09:32)
[2017-06-06] MEDS: DOFETILIDE 0.5 MG CAP PO SCH ×2 (09:32→21:05)
[2017-06-06] MEDS: LISINOPRIL 5 MG TAB PO SCH (09:32)
[2017-06-06] MEDS: APIXABAN 5 MG TAB PO SCH ×2 (09:32→21:06)
[2017-06-06] MEDS ORDERED: PROTOCOL POTASSIUM 1 DOSE MISC PRN (09:40)
[2017-06-06] MEDS ORDERED: POTASSIUM CL 10 MEQ TAB PO ONE (10:04)
[2017-06-06] MEDS ORDERED: ATROPINE SULFATE 1 MG/10 ML SYR ONE (10:46)
--- NOTE | 2017-06-06 10:48 | PDANEPAE ---
ANE History of Present Illness AFib here for DC CV ANE Past Medical History - Cardiovascular History Hx Hypertension: Yes Hx Arrhythmias: Yes Hx Chest Pain: No Hx Coronary Artery / Peripheral Vascular Disease: No Hx CHF / Valvular Disease: No Cardiovascular History Comment: AFIB - Pulmonary History Hx Oxygen in Use at Home: Yes O2 in Use at Home (L/minute): 2 to 3 Hx Sleep Apnea: Yes - Endocrine History Hx Diabetes: No Obesity: yes, severe - Chronic Pain History Chronic Pain: Yes ANE Review of Systems Review of Systems: - Exercise capacity Exercise capacity: >=4 METS ANE Patient History - Allergies Allergies/Adverse Reactions: No Known Allergies Allergy (Verified 03/09/12 12:40) - Home Medications Home Medications: Carvedilol [Coreg (*)] 25 mg PO BIDMEAL 06/20/16 [Last Taken 06/05/17] glyBURIDE [Glyburide] 2.5 mg PO DAILY 06/20/16 [Last Taken 06/05/17] Digoxin [Lanoxin 250 mcg (RX)] 125 mcg PO DAILY10 09/22/16 [Last Taken 3 Days Ago ~06/02/17] Apixaban [Eliquis] 5 mg PO BID 06/05/17 [Last Taken 06/05/17] Diltiazem Cd [Cardizem ER 120 MG (*)] 120 mg PO DAILY 06/05/17 [Last Taken 06/05] Eplerenone 50 mg PO DAILY 06/05/17 [Last Taken 06/05/17] Furosemide [Lasix 80 MG (*)] 80 mg PO BID 06/05/17 [Last Taken 06/05/17] Lisinopril [Zestril 5 mg (*)] 5 mg PO DAILY 06/05/17 [Last Taken 06/05/17] Methyl Salicylate/Menthol [Icy Hot Cream] 1 oliva TP DAILY PRN 06/05/17 [Last Taken Unknown] Potassium Cl [Klor-Con 20 meq (*)] 20 meq PO DAILY 06/05/17 [Last Taken 06/05/17 ] - NPO status NPO Status: no food or drink >8 hours - Anes Hx Anes Hx: no prior problems - Smoking Hx Smoking Status: Heavy smoker - Alcohol Use Alcohol Use: None - Family Anes Hx Family Anes Hx: none ANE Labs/Vital Signs - Labs Result Diagrams: 06/05/17 12:10 06/06/17 04:14 - Vital Signs Blood Pressure: 133/99 Heart Rate: 106 Respiratory Rate: 18 O2 Sat (%): 97 Height: 187.96 cm Weight: 149.685 kg ANE Physical Exam - Airway Neck exam: FROM Mallampati Score: Class 2 Mouth exam: poor dentition Mouth image: 1 - missing - Pulmonary Pulmonary: no respiratory distress - Cardiovascular Cardiovascular: regular rate and rhythym - ASA Status ASA Status: III ANE Anesthesia Plan Anesthesia Plan: GA with mask
[2017-06-06] MEDS ORDERED: PROPOFOL 200 MG/20 ML VIAL ONE (10:52)
[2017-06-06] MEDS ORDERED: LABETALOL HCL 5 MG/ML 20 ML MDV ONE (11:16)
--- NOTE | 2017-06-06 11:19 | PDTEE1 ---
TAYA Cardioversion Procedure Indications: atrial fibrillation Consent: signed and in chart Anticoagulation: andrew Procedural Details: Pads were placed in anterior-posterior position. T Synchronized cardioversion attempt #1: 200J Synchronized cardioversion attempt #2: 300J Results: normal sinus rhythm Conclusions: successful cardioversion Patient Problems: Problems Problem Status Onset Atrial fibrillation Acute Congestive heart failure Acute
--- NOTE | 2017-06-06 11:31 | CPEKG ---
Heart Rate: 63 RR Interval: 952 P-R Interval: 240 QRSD Interval: 102 QT Interval: 464 QTC Interval: 476 P [place]: 60 QRS [place]: 87 T Wave [place]: 39 EKG Severity - ABNORMAL ECG - EKG Impression: SINUS RHYTHM EKG Impression: FIRST DEGREE AV BLOCK EKG Impression: PROBABLE LEFT ATRIAL ABNORMALITY Electronically Signed By: Jose A Jiang 06-Jun-2017 14:22:21
[2017-06-06] MEDS ORDERED: LIDOCAINE/PRILOCAINE 1 EACH CRTUBE TP ONE (11:39)
[2017-06-06] MEDS ORDERED: LIDOCAINE/PRILOCAINE 1 EACH CRTUBE TP PRN (11:43)
[2017-06-06] MEDS: FUROSEMIDE 80 MG TAB PO SCH ×2 (13:49→17:30)
[2017-06-06] MEDS: DILTIAZEM CD 120 MG CAP PO SCH (13:50)
[2017-06-06] MEDS: CARVEDILOL 25 MG TAB PO SCH ×2 (13:50→18:55)
[2017-06-06] MEDS: glyBURIDE 2.5 MG TAB PO SCH (13:50)
--- NOTE | 2017-06-06 14:13 | PDCARPN ---
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 He stopped drinking 9 months ago and his EF normalized. He has persistent atrial fibrillation with fatigue and therefore is being admitted for Tikosyn loading. He has received two doses of Tikosyn and is doing well. JT is 320. He had a successful CV today by Dr. Schultz. He will be here for more then two nights and therefore will be inpatient. Continue Eliquis for CVA prophylaxis. He will continue a BB and BRADLY-I for his NICMP. 06/06/17 14:14 Subjective: He denies any CP, SOB, or palpitations Objective: Vital Signs (8 Hrs) Temp Pulse Resp BP Pulse Ox 06/06/17 13:52 36.9 C 75 18 146/104 H 91 L 06/06/17 10:50 106 H 18 133/99 H 97 06/06/17 07:14 36.8 C 106 H 18 133/99 H 97 Intake/Output (24 Hrs) 06/05/17 06/06/17 06/07/17 05:59 05:59 05:59 Intake Total 1120 Balance 1120 Intake: Oral (ml) 1120 Other: Weight 149.685 kg 149.685 kg Number of Voids Toilet 2 Result Diagrams: 06/05/17 12:10 06/06/17 04:14 Telemetry: NSR - Physical Exam Constitutional: WDWN Cardiovascular: regular rate and rhythm, no murmurs, no rubs, no gallops Respiratory: clear to auscultate bilat, no crackles, no wheezes Neurologic: AAOx3 ICD10 Worksheet Patient Problems: Problems Problem Status Onset Atrial fibrillation Acute Congestive heart failure Acute
--- NOTE | 2017-06-06 15:56 | ASMTCMCOM ---
CM Note CM Note Notes: 06/06/2017 Case Management Note Reviewed chart, discussed with RN. Pt admitted for Tikosyn loading and cardioversion. There are no case management d/c needs identified d/t pt age, familiy support and activity levels prior to admission. There are no PT or OT evals ordered at this time. Case Management d/c poc: anticipating independent with follow up as directed. Case Management available if needs change. Date Signed: 06/06/2017 03:55 PM Electronically Signed By:Rain Trejo RN
--- NOTE | 2017-06-06 23:08 | CPEKG ---
Heart Rate: 55 RR Interval: 1091 P-R Interval: 232 QRSD Interval: 110 QT Interval: 544 QTC Interval: 521 P [place]: 61 QRS [place]: 94 T Wave [place]: 69 EKG Severity - ABNORMAL ECG - EKG Impression: SINUS RHYTHM EKG Impression: FIRST DEGREE AV BLOCK EKG Impression: QTc is prolonged, dose of dofetilide will be reduced to 250 mcg BID Electronically Signed By: Jose A Jiang 07-Jun-2017 08:40:45
[2017-06-07] MEDS ORDERED: METHYL SALICYLATE/MENTHOL OINTMENT TP PRN (08:30)
[2017-06-07] MEDS: CARVEDILOL 25 MG TAB PO SCH ×2 (08:33→17:01)
[2017-06-07] MEDS: LISINOPRIL 5 MG TAB PO SCH (08:33)
[2017-06-07] MEDS: glyBURIDE 2.5 MG TAB PO SCH (08:34)
[2017-06-07] MEDS: POTASSIUM CL 20 MEQ TAB PO SCH (08:34)
[2017-06-07] MEDS: DILTIAZEM CD 120 MG CAP PO SCH (08:34)
[2017-06-07] MEDS: APIXABAN 5 MG TAB PO SCH ×2 (08:34→20:59)
[2017-06-07] MEDS: EPLERENONE 25 MG TAB PO SCH (08:34)
[2017-06-07] MEDS: FUROSEMIDE 80 MG TAB PO SCH ×2 (08:34→17:01)
[2017-06-07] MEDS: DOFETILIDE 0.25 MG CAP PO SCH ×2 (09:54→20:59)
--- NOTE | 2017-06-07 10:46 | PDCARPN ---
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 He stopped drinking 9 months ago and his EF normalized. He has persistent atrial fibrillation with fatigue and therefore is being admitted for Tikosyn loading. He was started on 500 BID. His QTc is now prolonged and greater then 500. His dose will be reduced to 250mcg BID. He had a successful cardioverted yesterday by Dr. Schultz. He will be here for more then two nights and therefore will be inpatient. Continue Eliquis for CVA prophylaxis. He will continue a BB and BRADLY-I for his NICMP. 06/07/17 10:44 Subjective: He denies any CP, SOB, or palpitations. Objective: Vital Signs (8 Hrs) Temp Pulse Resp BP Pulse Ox 06/07/17 07:38 36.6 C 59 L 12 104/85 H 96 06/07/17 03:43 37.2 C 65 12 138/79 H 97 Intake/Output (24 Hrs) 06/06/17 06/07/17 06/08/17 05:59 05:59 05:59 Intake Total 1120 1720 Balance 1120 1720 Intake: Oral (ml) 1120 1720 Other: Weight 149.685 kg 149.685 kg Number of Voids Toilet 2 1 Number of Stools Toilet 1 1 Result Diagrams: 06/05/17 12:10 06/07/17 03:40 EKG: NSR with prolonged QTc Telemetry: NSR - Physical Exam Constitutional: WDWN Cardiovascular: regular rate and rhythm, no murmurs, no rubs, no gallops Respiratory: clear to auscultate bilat, no crackles, no wheezes Neurologic: AAOx3 ICD10 Worksheet Patient Problems: Problems Problem Status Onset Atrial fibrillation Acute Congestive heart failure Acute
--- NOTE | 2017-06-07 12:01 | CPEKG ---
Heart Rate: 59 RR Interval: 1017 P-R Interval: 216 QRSD Interval: 102 QT Interval: 484 QTC Interval: 480 P [place]: 67 QRS [place]: 85 T Wave [place]: 55 EKG Severity - ABNORMAL ECG - EKG Impression: SINUS RHYTHM EKG Impression: FIRST DEGREE AV BLOCK EKG Impression: PROBABLE LEFT ATRIAL ABNORMALITY EKG Impression: PROBABLE ANTEROSEPTAL INFARCT, AGE INDETERM EKG Impression: BORDERLINE PROLONGED QT INTERVAL Electronically Signed By: Jose A Jiang 07-Jun-2017 13:05:44
[2017-06-07] MEDS ORDERED: POTASSIUM CL 10 MEQ TAB PO ONE (20:10)
--- NOTE | 2017-06-07 22:56 | CPEKG ---
Heart Rate: 61 RR Interval: 984 P-R Interval: 228 QRSD Interval: 110 QT Interval: 488 QTC Interval: 492 P [place]: 73 QRS [place]: 87 T Wave [place]: 51 EKG Severity - ABNORMAL ECG - EKG Impression: SINUS RHYTHM EKG Impression: FIRST DEGREE AV BLOCK EKG Impression: PROBABLE LEFT ATRIAL ABNORMALITY EKG Impression: NONSPECIFIC INTRAVENTRICULAR CONDUCTION DELAY Electronically Signed By: Mile Morales 08-Jun-2017 06:49:28
[2017-06-08] MEDS ORDERED: DOFETILIDE 0.25 MG CAP PO SCH
[2017-06-08] MEDS: EPLERENONE 25 MG TAB PO SCH (08:28)
[2017-06-08] MEDS: DILTIAZEM CD 120 MG CAP PO SCH (08:29)
[2017-06-08] MEDS: APIXABAN 5 MG TAB PO SCH (08:29)
[2017-06-08] MEDS: CARVEDILOL 25 MG TAB PO SCH (08:29)
[2017-06-08] MEDS: glyBURIDE 2.5 MG TAB PO SCH (08:29)
[2017-06-08] MEDS: FUROSEMIDE 80 MG TAB PO SCH (08:29)
[2017-06-08] MEDS: LISINOPRIL 5 MG TAB PO SCH (08:29)
[2017-06-08] MEDS: POTASSIUM CL 20 MEQ TAB PO SCH (08:36)
[2017-06-08] MEDS: DOFETILIDE 0.25 MG CAP PO SCH (09:46)
[2017-06-08 11:33] VITALS: BP 117/70
--- NOTE | 2017-06-08 12:13 | CPEKG ---
Heart Rate: 51 RR Interval: 1176 P-R Interval: 232 QRSD Interval: 118 QT Interval: 488 QTC Interval: 450 P [place]: 28 QRS [place]: 69 T Wave [place]: 49 EKG Severity - ABNORMAL ECG - EKG Impression: SINUS RHYTHM EKG Impression: FIRST DEGREE AV BLOCK EKG Impression: LEFT ATRIAL ABNORMALITY EKG Impression: INCOMPLETE RIGHT BUNDLE BRANCH BLOCK Electronically Signed By: Jose A Jiang 08-Jun-2017 14:03:32
--- NOTE | 2017-06-08 14:45 | GDS ---
[f rep st] DISCHARGE SUMMARY DISCHARGE DIAGNOSES: 1. Persistent atrial fibrillation, status post Tikosyn loading and cardioversion, currently in mil[place] l sinus rhythm. 2. Nonischemic cardiomyopathy, alcohol induced with resolution in his ejection fraction by most rece nt evaluation. HOSPITAL COURSE: For detailed H and P, please see prior dictation. Briefly, the patient is a 52-year-old male with a history of nonischemic cardiomyopathy and persisten t atrial fibrillation. His cardiomyopathy was thought to be secondary to alcohol use. He discontinu ed alcohol 8 to 9 months ago, and his ejection fraction has normalized. He continued to be in atrial fibrillation despite multiple attempts at cardioversion. He was complaining of fatigue, which was t hought to be related to atrial fibrillation. Ultimately, the decision was made for Tikosyn loading. He was admitted to the hospital on 06/05 and started on Tikosyn. His QTc became prolonged, and ther efore, his dose was reduced back to 250 mcg daily. He has had 3 EKGs while on this dose with his las t QTc of 450. He was cardioverted during this hospitalization, has remained in normal sinus rhythm. On admission to the hospital, his potassium was 4.4, magnesium was 1.4. His magnesium has been repl aced. He will need to remain on potassium and magnesium as outpatient. PHYSICAL EXAMINATION: GENERAL: Patient appears in no acute distress. VITALS: Blood pressure 117/7 0, heart rate 58, oxygen saturation of 97% on 2 L, afebrile. LUNGS: Clear to auscultation. No whee zes, rhonchi, or crackles auscultated. CARDIAC: Regular rate and rhythm without any significant mur murs, rubs, or gallops appreciated. EXTREMITIES: No evidence of edema. DISCHARGE MEDICATIONS: Tikosyn 0.25 mg b.i.d., magnesium 64 mg p.o. b.i.d., Coreg 25 mg b.i.d., glyb uride 2.5 mg daily, Cardizem ER 120 mg daily, potassium 20 mEq daily, Lasix 80 mg b.i.d., Eliquis 5 m g p.o. b.i.d., lisinopril 5 mg daily, eplerenone 50 mg daily. Digoxin has been discontinued. PLAN: The patient is status post Tikosyn loading and is currently in normal sinus rhythm. He is omid eduled to follow up with Dr. Irving on July 12 at 1 p.m. /[id number]/MODL
== END 2017-06-08 15:10 | disposition home or self-care (01) | DRG 201 ==
LOC: F2W 09:30
PROVIDERS: ADMIT Internal Medicine Cardiovascular Disease; ATTEND Internal Medicine Cardiovascular Disease
PROC: 5A2204Z Restoration of Cardiac Rhythm, Single (ICD-10-PCS; principal; 2017-06-06)
DX: I48.1 Persistent atrial fibrillation (principal); I42.6 Alcoholic cardiomyopathy; F10.21 Alcohol dependence, in remission; I50.22 Chronic systolic (congestive) heart failure; E11.9 Type 2 diabetes mellitus without complications; G47.33 Obstructive sleep apnea (adult) (pediatric); Z79.01 Long term (current) use of anticoagulants
CPT/HCPCS: J0461; J2704; J3475

== ENCOUNTER 2017-09-12 10:27 | Day surgery (SDC) | payer MEDICAID ==
[2017-09-12] MEDS ORDERED: ATROPINE SULFATE 1 MG/10 ML SYR IVP ONE (10:33)
[2017-09-12] MEDS ORDERED: NS 500 ML IV ONE (10:33)
--- NOTE | 2017-09-12 10:46 | CPEKG ---
Heart Rate: 83 RR Interval: 723 QRSD Interval: 104 QT Interval: 376 QTC Interval: 442 QRS [place]: 92 T Wave [place]: 25 EKG Severity - ABNORMAL ECG - EKG Impression: ATRIAL FIBRILLATION, V-RATE 64-98 EKG Impression: CONSIDER RIGHT VENTRICULAR HYPERTROPHY EKG Impression: ABNRM R PROG, CONSIDER ASMI OR LEAD PLACEMENT Electronically Signed By: Viktor Her 13-Sep-2017 11:55:15
--- NOTE | 2017-09-12 11:12 | PDGENHP ---
History & Physical Chief Complaint: Symptomatic atrial fibrillation History of Present Illness: Atrial fibrillation recurred when he went on tour, prior to that he was staying in normal sinus rhythm. He feels fatigued with atrial fibrillation. Relevant Physical Exam: S1-S2 irregular, CTA, alert and oriented x3 Cardiorespiratory Assessment: Symptomatic atrial fibrillation, for TAYA guided cardioversion. Patient wants to try lifestyle changes prior to considering ablation.
[2017-09-12 11:15] LABS: INR 1.18 (0.83-1.16); PROTIME(PATIENT) 15.2 SEC (12.0-15.0)
--- NOTE | 2017-09-12 11:43 | PDANEPAE ---
ANE Past Medical History - Cardiovascular History Hx Hypertension: Yes Hx Arrhythmias: Yes Hx Chest Pain: No Hx Coronary Artery / Peripheral Vascular Disease: No Hx CHF / Valvular Disease: No Cardiovascular History Comment: AFIB - Pulmonary History Hx COPD: No Hx Asthma/Reactive Airway Disease: No Hx Recent Upper Respiratory Infection: No Hx Oxygen in Use at Home: Yes Hx Sleep Apnea: Yes - Endocrine History Hx Diabetes: No Obesity: severe - Chronic Pain History Chronic Pain: Yes ANE Review of Systems Review of Systems: ANE Patient History - Allergies Allergies/Adverse Reactions: No Known Allergies Allergy (Verified 03/09/12 12:40) - Home Medications Home Medications: Carvedilol [Coreg (*)] 25 mg PO BIDMEAL 06/20/16 [Last Taken 06/05/17] glyBURIDE [Glyburide] 2.5 mg PO DAILY 06/20/16 [Last Taken 06/05/17] Apixaban [Eliquis] 5 mg PO BID 06/05/17 [Last Taken 06/05/17] Diltiazem Cd [Cardizem ER 120 MG (*)] 120 mg PO DAILY 06/05/17 [Last Taken 06/05] Eplerenone 50 mg PO DAILY 06/05/17 [Last Taken 06/05/17] Furosemide [Lasix 80 MG (*)] 80 mg PO BID 06/05/17 [Last Taken 06/05/17] Lisinopril [Zestril 5 mg (*)] 5 mg PO DAILY 06/05/17 [Last Taken 06/05/17] Methyl Salicylate/Menthol [Icy Hot Cream] 1 oliva TP DAILY PRN 06/05/17 [Last Taken Unknown] Potassium Cl [Klor-Con 20 meq (*)] 20 meq PO DAILY 06/05/17 [Last Taken 06/05/17 ] - Smoking Hx Smoking Status: Heavy smoker ANE Labs/Vital Signs - Labs Result Diagrams: 09/12/17 11:00 ANE Physical Exam - Airway Neck exam: decreased ROM Mallampati Score: Class 2 Mouth exam: dentures - Pulmonary Pulmonary: no respiratory distress - Cardiovascular Cardiovascular: irregularly irregular, tachycardia - ASA Status ASA Status: III ANE Anesthesia Plan Anesthesia Plan: general endotracheal anesthesia, GA with mask Total IV Anesthesia: Yes
[2017-09-12] MEDS ORDERED: PROPOFOL/EMULSION 500 MG/50 ML BOTTLE IV ONE (11:50)
[2017-09-12] MEDS ORDERED: LIDOCAINE 1% 5 ML SDV ONE (11:51)
[2017-09-12] MEDS ORDERED: SUCCINYLCHOLINE CHLORIDE 200 MG/10 ML SYR IVP ONE (11:51)
--- NOTE | 2017-09-12 12:09 | PDTEE1 ---
TAYA Cardioversion Procedure Procedure: electrical cardioversion, transesophageal echo Indications: atrial fibrillation Consent: signed and in chart Anticoagulation: eliquis Procedural Details: Pads were placed in anterior-posterior position. TAYA probe was advanced and standard images obtained. There is no evidence of left atrial or left atrial appendage thrombus. Synchronized cardioversion attempt #1: 200J Results: normal sinus rhythm Conclusions: successful TAYA cardioversion Patient Problems: Problems Problem Status Onset Atrial fibrillation Acute Congestive heart failure Acute
--- NOTE | 2017-09-12 12:19 | POSTANESTH ---
Post Anesthetic Evaluation Cardiovascular Status: Normal, Stable Respiratory Status: Similar to Pre-op Cond. Level of Consciousness/Mental Status: Can Participate in Eval Pain Control: Adequate, Prn Tx Ordered Nausea/Vomiting Control: Adequate, Prn Tx Ordered Complications Possibly Related to Anesthesia: None Noted
--- NOTE | 2017-09-12 12:30 | CPEKG ---
Heart Rate: 83 RR Interval: 723 P-R Interval: 216 QRSD Interval: 102 QT Interval: 404 QTC Interval: 475 P Bussey: 70 QRS Bussey: 93 T Wave Bussey: 37 EKG Severity - ABNORMAL ECG - EKG Impression: SINUS RHYTHM EKG Impression: FIRST DEGREE AV BLOCK EKG Impression: BIATRIAL ABNORMALITIES EKG Impression: CONSIDER RIGHT VENTRICULAR HYPERTROPHY EKG Impression: COMPARED TO ekg DATED 06/08 SINUS RHYTHM HAS REPLACED ATRIAL FIBRILLATION Electronically Signed By: Viktor Her 13-Sep-2017 11:56:07
--- NOTE | 2017-09-21 16:53 | ECHO ---
[email or web address] [address] [address] Main: [phone] Fax: Transesophageal Echocardiography Name: ERMELINDA MO MR#: [id number] Study Date: 09/12/2017 Study Time: 11:47 AM Date of : 1965 Age: 52 year(s) Height: ( ) Weight: ( ) BSA: Gender: Male Examination: TAYA Indication: Pre Cardioversion Image Quality: Contrast: Requested by: Jose A Jiang Heart Rate: Rhythm: Atrial fibrillation BP: 122 mmHg/79 mmHg Procedure Staff Bulk Delivery Driver: Ced De Jesus RDCS Reading Physician: Jose A Jiang MD Requesting Provider: TAYA Exam Details Conclusions: Normal global systolic LV function. Small left to right shunt across the interatrial septum noted with color flow Doppler. No thrombus in left appendage. The mitral valve is normal in appearance and function. No pericardial effusion. Measurements: Chambers Valvular Assessment AV/MV Valvular Assessment TV/PV Normal Normal Normal Name Value Range Name Value Range Name Value Range Additional Measurements: Findings: Left Ventricle: Normal size left ventricle. Normal global systolic LV function. No regional wall motion abnormality. Right Ventricle: Normal size right ventricle. Normal RV function. Left Atrium: The left atrium is normal in size. Small left to right shunt across the interatrial septum noted with color flow Doppler. Left Atrial Appendage: Good color flow doppler in the left atrial appendage. No thrombus in left appendage. Patient: ERMELINDA MO Study Date: 09/12/2017 Page 1 of 2 11:47 AM Right Atrium: The right atrium is normal in size. Mitral Valve: The mitral valve is normal in appearance and function. Aortic Valve: The aortic valve is tri-leaflet. The aortic valve is normal in appearance and function. Tricuspid Valve: The tricuspid valve is normal in appearance and function. Pulmonic Valve: The pulmonic valve is normal in appearance and function. Aorta: The aorta is normal. Pericardium: No pericardial effusion. l1n (No Signature Object) Patient: ERMELINDA MO Study Date: 09/12/2017 Page 2 of 2 11:47 AM [id number]
== END 2017-09-12 13:23 | disposition home or self-care (01) ==
LOC: FCATH 10:27
PROVIDERS: ATTEND Internal Medicine Cardiovascular Disease
DX: I48.91 Unspecified atrial fibrillation (principal); E66.01 Morbid (severe) obesity due to excess calories; G47.33 Obstructive sleep apnea (adult) (pediatric); F17.210 Nicotine dependence, cigarettes, uncomplicated; Z79.01 Long term (current) use of anticoagulants
CPT/HCPCS: J0330; J2704

== ENCOUNTER 2018-04-23 09:39 | Day surgery (SDC) | payer MEDICAID ==
[2018-04-23] MEDS ORDERED: NS 500 ML IV ONE (09:44)
[2018-04-23] MEDS ORDERED: MIDAZOLAM 2 MG/2 ML VIAL IVP ONE (09:44)
[2018-04-23] MEDS ORDERED: BENZOCAINE UNIT DOSE SPRAY HURRICAINE MM ONE (09:44)
[2018-04-23] MEDS ORDERED: fentaNYL 100 MCG/2 ML INJ IVP ONE (09:44)
[2018-04-23] MEDS ORDERED: ATROPINE SULFATE 1 MG/10 ML SYR IVP ONE (09:44)
[2018-04-23 10:24] LABS: INR 1.25 (0.83-1.16); PROTIME(PATIENT) 15.9 SEC (12.0-15.0)
--- NOTE | 2018-04-23 10:54 | PDGENHP ---
History & Physical Chief Complaint: symptomatic afib Relevant Physical Exam: s1s2 irreg. cta ao3 Cardiorespiratory Assessment: for lisa cv (did miss dose of eliquis this month). advised to stop smoking
[2018-04-23] MEDS ORDERED: PROPOFOL/EMULSION 500 MG/50 ML BOTTLE IV ONE (10:55)
--- NOTE | 2018-04-23 11:00 | PDANEPAE ---
ANE History of Present Illness A-fib with RVR ANE Past Medical History - Cardiovascular History Hx Hypertension: Yes Hx Arrhythmias: Yes Hx Chest Pain: No Hx Coronary Artery / Peripheral Vascular Disease: No Hx CHF / Valvular Disease: No Cardiovascular History Comment: AFIB - Pulmonary History Hx COPD: No Hx Asthma/Reactive Airway Disease: No Hx Recent Upper Respiratory Infection: Yes Hx Oxygen in Use at Home: Yes Hx Sleep Apnea: Yes - Endocrine History Hx Diabetes: No Hypothyroid: No Hyperthyroid: No Obesity: severe - Renal History Hx Renal Disorders: Yes Renal History Comment: recent hospitalization with JENAE - Liver History Hx Hepatic Disorders: No - Neurological & Psychiatric Hx Hx Neurological and Psychiatric Disorders: No - Chronic Pain History Chronic Pain: Yes ANE Review of Systems Review of systems is: negative Review of Systems: - Exercise capacity Exercise capacity: >=4 METS ANE Patient History - Allergies Allergies/Adverse Reactions: No Known Allergies Allergy (Verified 03/09/12 12:40) - Home Medications Home medications: home medication list seen and reviewed Home Medications: Carvedilol [Coreg (*)] 25 mg PO BIDMEAL 06/20/16 [Last Taken 04/22/18 07:00] Apixaban [Eliquis] 5 mg PO BID 06/05/17 [Last Taken 04/23/18 07:00] Diltiazem Cd [Cardizem ER 120 MG (*)] 120 mg PO DAILY 06/05/17 [Last Taken 04/22 07:00] Furosemide [Lasix 80 MG (*)] 40 mg PO DAILY 06/05/17 [Last Taken 04/22/18 07:00] Lisinopril [Zestril 5 mg (*)] 10 mg PO DAILY 06/05/17 [Last Taken 04/22/18 07:00 ] Methyl Salicylate/Menthol [Icy Hot Cream] 1 oliva TP DAILY PRN 06/05/17 [Last Taken Unknown] - NPO status NPO Status: no food or drink >8 hours - Anes Hx Anes Hx: no prior problems - Smoking Hx Smoking Status: Heavy smoker ANE Labs/Vital Signs - Labs Result Diagrams: 04/23/18 10:05 - Vital Signs Vital Signs: reviewed preoperatively; see RN documention for details Height: 188 cm Weight: 152 kg ANE Physical Exam - Airway Neck exam: FROM Mallampati Score: Class 2 Mouth exam: poor dentition (no upper teeth) - Pulmonary Pulmonary: expiratory wheeze - Cardiovascular Cardiovascular: irregularly irregular - ASA Status ASA Status: III ANE Anesthesia Plan Anesthesia Plan: GA with mask
[2018-04-23] MEDS ORDERED: NALOXONE HCL 0.4 MG/ML INJ IVP PRN (12:59)
--- NOTE | 2018-04-23 13:00 | POSTANESTH ---
Post Anesthetic Evaluation Cardiovascular Status: Normal, Stable Respiratory Status: Normal, Stable Level of Consciousness/Mental Status: Can Participate in Eval Pain Control: Adequate, Prn Tx Ordered Nausea/Vomiting Control: Adequate, Prn Tx Ordered Complications Possibly Related to Anesthesia: None Noted
[2018-04-23] MEDS ORDERED: DOFETILIDE 0.25 MG CAP PO SCH (21:00)
--- NOTE | 2018-04-26 06:36 | ECHO ---
[email or web address] [address] [address] Main: [phone] Fax: Transesophageal Echocardiography Name: ERMELINDA MO MR#: [id number] Study Date: 04/23/2018 Study Time: 11:17 AM Date of : 1965 Age: 53 year(s) Height: ( ) Weight: ( ) BSA: Gender: Male Examination: TAYA Indication: Pre Cardioversion Image Quality: Contrast: Requested by: Jose A Jiang Heart Rate: Rhythm: Atrial fibrillation BP: / Procedure Staff Behavioral Health Therapist: Ced De Jesus RDCS Reading Physician: Jose A Jiang MD Requesting Provider: TAYA Exam Details Measurements: Chambers Valvular Assessment AV/MV Valvular Assessment TV/PV Normal Normal Normal Name Value Range Name Value Range Name Value Range EF Range: 55 % Additional Measurements: Findings: Left Ventricle: Normal global systolic LV function. The ejection fraction is estimated to be 55 %. Left Atrium: Small left to right shunt across the interatrial septum noted with color flow Doppler. Left Atrial Appendage: Good color flow doppler in the left atrial appendage. No thrombus in left appendage. Mitral Valve: The mitral valve is normal in appearance. Mild mitral valve regurgitation is present. Aortic Valve: The aortic valve is tri-leaflet. The aortic valve is normal in appearance. Tricuspid Valve: The tricuspid valve is normal in appearance and function. Trivial to mild tricuspid valve regurgitation. Pulmonic Valve: The pulmonic valve is normal in appearance and function. Patient: ERMELINDA MO Study Date: 04/23/2018 Page 1 of 2 11:17 AM Aorta: The aorta is normal. Pericardium: No pericardial effusion. Exam Comments: Proceeded with successful elective DC cardioversion.. l1n (No Signature Object) Patient: ERMELINDA MO Study Date: 04/23/2018 Page 2 of 2 11:17 AM [id number]
== END 2018-04-23 12:48 | disposition home or self-care (01) ==
LOC: CREHS 09:39 → FCATH 12:48
PROVIDERS: ATTEND Internal Medicine Cardiovascular Disease
DX: I48.91 Unspecified atrial fibrillation (principal); R06.02 Shortness of breath; I50.32 Chronic diastolic (congestive) heart failure; E66.01 Morbid (severe) obesity due to excess calories; Z68.41 Body mass index [BMI] 40.0-44.9, adult; G47.33 Obstructive sleep apnea (adult) (pediatric); F17.210 Nicotine dependence, cigarettes, uncomplicated; E11.9 Type 2 diabetes mellitus without complications; Z79.01 Long term (current) use of anticoagulants
CPT/HCPCS: J0461; J2704